=== PATIENT | female | born 1950 | race Caucasian/White ===

== ENCOUNTER 2016-11-28 09:10 | Observation (INO) | payer MEDICARE, BC ==
[~2016-11-28] VITALS: Ht 162.6 cm; Wt 102.1 kg
[~2016-11-28 09:10] MED LIST: AMLODIPINE2.5 MG PO; AMOXICILLIN500 MG PO; ASPIRIN ADULT L81 MG PO; BETHANECHOL50 MG PO; BUSPAR5 MG PO; CIPROFLOXACN500 MG PO; CLONAZEPAM1 MG PO; CYMBALTA60 MG PO; DILANTIN100 MG PO; HYDROCHLOROT25 MG PO; JANUVIA50 MG PO; LIPITOR40 M1 PO; LORCET HD 10-321 TAB PO; LOSARTAN POT50 MG PO; METFORMIN500 MG PO; METOPROLOL SUC100 MG PO; METRONIDAZOL500 MG PO; PROMETHAZINE12.5 MG PO; SPIRIVA HANDIHALER IN
[2016-11-28] MEDS ORDERED: METOPROLOL SUCC50 MG PO (09:28)
[2016-11-28] MEDS ORDERED: MORPHINE SULFAT20 MG PO (09:28)
[2016-11-28] MEDS ORDERED: CLONAZEP ODT1 MG PO (09:29)
[2016-11-28] MEDS ORDERED: LYRICA100 MG PO (09:29)
[2016-11-28] MEDS ORDERED: BUSPAR10 M1 PO (09:30)
[2016-11-28] MEDS ORDERED: AMLODIPINE5 MG PO (09:30)
[2016-11-28] MEDS ORDERED: QUETIAPINE FUM400 MG PO (09:31)
[2016-11-28] MEDS ORDERED: SUPER B COMP PO (09:32)
[2016-11-28 10:13] LABS: ALKALINE PHOSPHATASE 71 u/l (38-126); AMYLASE 56 u/l (30-110); ANION GAP 19 (6-22 (CALC)); BILIRUBIN, TOTAL 0.5 mg/dL (0.0-1.4); BUN 31 mg/dL (8-23); BUN/CREATININE RATIO 17 (12-20 (CALC)); CALCIUM 9.2 mg/dL (8.4-10.2); CARBON DIOXIDE 23 mmol/l (22-30); CHLORIDE 103 mmol/l (95-108); CREATININE 1.8 mg/dL (0.5-1.0); GFR 28 ML/MIN (>=60 (CALC)); GFR FOR AFR.AMER. 34 ML/MIN (>=60 (CALC)); GLUCOSE 300 mg/dL (82-115); LIPASE 84 u/l (23-300); POTASSIUM 4.2 mmol/l (3.5-5.1); SGOT/AST 39 u/l (9-36); SGPT/ALT 72 u/l (11-66); SODIUM 140 mmol/l (137-146); TOTAL PROTEIN 7.3 g/dL (6.3-8.2)
[2016-11-28 10:18] LABS: HEMATOCRIT 40.7 % (37.0-47.0); HEMOGLOBIN 13.2 g/dl (12.0-16.0); IMMATURE GRANULOCYTES 0.4 % (0.0-1.0); MEAN CELL VOLUME 89.8 fL CALC (80.0-100.0); MEAN CORPUSCULAR HGB 29.1 pG CALC (26.0-32.0); MEAN CORPUSCULAR HGB CONC 32.4 g/L CALC (32.0-36.0); NEUT# 8.45 thou/uL (2.00-7.15); RED BLOOD COUNT 4.53 mill/uL (4.20-5.60); RED CELL DISTRI WIDTH 12.6 % (11.5-15.5)
[2016-11-28 10:24] LABS: MYOGLOBIN 123 ng/mL (0 - 62)
[2016-11-28 11:22] LABS: C. DIFFICILE TOXIN A&B NEGATIVE (NEGATIVE)
[2016-11-28 14:37] VITALS: BP 106/58
[2016-11-28 19:09] VITALS: BP 122/67
[2016-11-28 23:28] VITALS: BP 135/67
[2016-11-29 02:55] LABS: URINE BILIRUBIN - DIPSTICK NEGATIVE (NEGATIVE); URINE BLOOD DIPSTICK NEGATIVE (NEGATIVE); URINE CLARITY CLEAR; URINE COLOR YELLOW; URINE GLUCOSE - DIPSTICK NEGATIVE (NEGATIVE); URINE KETONE NEGATIVE (NEGATIVE); URINE LEUK ESTERASE NEGATIVE (NEGATIVE); URINE NITRITE - DIPSTICK NEGATIVE (Negative); URINE PH 5.5 (4.5-8.0); URINE PROTEIN - DIPSTICK NEGATIVE (NEG-TRACE); URINE UROBILINOGEN - DIPSTICK 0.2 E.U./dL (0.2)
[2016-11-29 03:21] VITALS: BP 124/66
[2016-11-29 05:52] LABS: HEMATOCRIT 35.5 % (37.0-47.0); HEMOGLOBIN 11.7 g/dl (12.0-16.0); IMMATURE GRANULOCYTES 0.4 % (0.0-1.0); MEAN CELL VOLUME 88.5 fL CALC (80.0-100.0); MEAN CORPUSCULAR HGB 29.2 pG CALC (26.0-32.0); NEUT# 6.28 thou/uL (2.00-7.15); RED BLOOD COUNT 4.01 mill/uL (4.20-5.60); RED CELL DISTRI WIDTH 12.5 % (11.5-15.5)
[2016-11-29 06:04] LABS: CALCIUM 8.8 mg/dL (8.4-10.2); CREATININE 1.1 mg/dL (0.5-1.0); POTASSIUM 4.4 mmol/l (3.5-5.1)
[2016-11-29 07:49] VITALS: BP 139/66
[2016-11-29 11:45] VITALS: BP 161/70
[2016-11-29 16:10] VITALS: BP 153/71
[2016-11-29 20:43] VITALS: BP 165/68
[2016-11-29 23:39] VITALS: BP 142/84
[2016-11-30 04:05] VITALS: BP 160/65
[2016-11-30 05:56] LABS: HEMOGLOBIN 12.1 g/dl (12.0-16.0); IMMATURE GRANULOCYTES 0.4 % (0.0-1.0); MEAN CORPUSCULAR HGB 29.6 pG CALC (26.0-32.0); MEAN CORPUSCULAR HGB CONC 33.6 g/L CALC (32.0-36.0); NEUT# 2.99 thou/uL (2.00-7.15); RED BLOOD COUNT 4.09 mill/uL (4.20-5.60); RED CELL DISTRI WIDTH 12.4 % (11.5-15.5)
[2016-11-30 05:59] LABS: ANION GAP 13 (6-22 (CALC)); BUN 12 mg/dL (8-23); BUN/CREATININE RATIO 13 (12-20 (CALC)); CALCIUM 9.3 mg/dL (8.4-10.2); CARBON DIOXIDE 27 mmol/l (22-30); CHLORIDE 108 mmol/l (95-108); GFR 55 ML/MIN (>=60 (CALC)); GFR FOR AFR.AMER. > 60 ML/MIN (>=60 (CALC)); GLUCOSE 109 mg/dL (82-115); POTASSIUM 4.4 mmol/l (3.5-5.1); SODIUM 143 mmol/l (137-146)
[2016-11-30 08:30] VITALS: BP 149/91
[2016-11-30 11:11] VITALS: BP 165/55
== END 2016-11-30 13:16 | disposition home or self-care (01) ==
LOC: ENPENDDIS → ED 09:10 → ED-I 12:26 → ED 12:52 → MS2 12:53
PROVIDERS: Emergency Medicine; ADMIT Internal Medicine; ATTEND Internal Medicine
DX: N17.9 Acute kidney failure, unspecified (principal); E86.0 Dehydration; E11.22 Type 2 diabetes mellitus with diabetic chronic kidney disease; I12.9 Hypertensive chronic kidney disease with stage 1 through stage 4 chronic kidney disease, or unspecified chronic kidney disease; N18.9 Chronic kidney disease, unspecified; I95.9 Hypotension, unspecified; F41.9 Anxiety disorder, unspecified; F32.9 Major depressive disorder, single episode, unspecified; J44.9 Chronic obstructive pulmonary disease, unspecified; E78.5 Hyperlipidemia, unspecified; E87.2 Acidosis; K52.9 Noninfective gastroenteritis and colitis, unspecified; E11.69 Type 2 diabetes mellitus with other specified complication; E11.40 Type 2 diabetes mellitus with diabetic neuropathy, unspecified
CPT/HCPCS: J1650

== ENCOUNTER 2016-12-16 09:03 | Inpatient (IN) | payer MEDICARE, BC ==
[~2016-12-16] VITALS: Ht 162.6 cm; Wt 103.0 kg
[2016-12-16] VITALS (11 sets, daily range): BP systolic 75–150; BP diastolic 48–66
[~2016-12-16 09:03] MED LIST changes: +AMLODIPINE5 MG PO; +BUSPAR10 M1 PO; +CLONAZEP ODT1 MG PO; +HYDROCODONE/ACE1 TAB PO; +LYRICA100 MG PO; +LYRICA150 MG PO; +METOPROLOL SUCC50 MG PO; +MORPHINE SULFAT20 MG PO; +MS CONTIN15 M1 PO; +QUETIAPINE FUM400 MG PO; +SUPER B COMP PO
--- NOTE | 2016-12-16 09:05 | NUR ---
PT TO ROOM 12 VIA EMS.
[2016-12-16 09:36] LABS: HEMATOCRIT 35.4 % (37.0-47.0); HEMOGLOBIN 11.5 g/dl (12.0-16.0); IMMATURE GRANULOCYTES 0.2 % (0.0-1.0); MEAN CELL VOLUME 90.3 fL CALC (80.0-100.0); MEAN CORPUSCULAR HGB 29.3 pG CALC (26.0-32.0); MEAN CORPUSCULAR HGB CONC 32.5 g/L CALC (32.0-36.0); NEUT# 3.09 thou/uL (2.00-7.15); RED BLOOD COUNT 3.92 mill/uL (4.20-5.60); RED CELL DISTRI WIDTH 13.1 % (11.5-15.5)
--- NOTE | 2016-12-16 09:39 | NUR ---
PT NOW WITH IV ESTABLISHED, BLOOD DRAWN, IVF STARTED, SEEN BY EDP UPON ARRIVAL. BP 95/53 NOW, LOWER WHEN EMS RESPONDED 80/40. DAUGHTER AT BEDSIDE.
[2016-12-16 09:49] LABS: INTERNATIONAL NORMALIZED RATIO 1.1 RATIO (0.7-1.3); PROTHROMBIN TIME 11.7 SECONDS (9.0-12.5)
[2016-12-16 09:50] LABS: ALBUMIN 3.8 g/dL (3.2-5.0); BILIRUBIN, TOTAL 0.5 mg/dL (0.0-1.4); CALCIUM 9.1 mg/dL (8.4-10.2); CREATININE 2.1 mg/dL (0.5-1.0); POTASSIUM 4.5 mmol/l (3.5-5.1); TOTAL PROTEIN 6.5 g/dL (6.3-8.2)
[2016-12-16 10:56] LABS: URINE BILIRUBIN - DIPSTICK NEGATIVE (NEGATIVE); URINE BLOOD DIPSTICK NEGATIVE (NEGATIVE); URINE CLARITY CLEAR; URINE COLOR YELLOW; URINE GLUCOSE - DIPSTICK NEGATIVE (NEGATIVE); URINE KETONE NEGATIVE (NEGATIVE); URINE LEUK ESTERASE NEGATIVE (NEGATIVE); URINE NITRITE - DIPSTICK NEGATIVE (Negative); URINE PH 5.5 (4.5-8.0); URINE PROTEIN - DIPSTICK NEGATIVE (NEG-TRACE); URINE SPECIFIC GRAVITY >=1.030; URINE UROBILINOGEN - DIPSTICK 0.2 E.U./dL (0.2)
[2016-12-16 10:59] LABS: COCAINE NEGATIVE (NEGATIVE); TETRAHYDROCANNABIONOL NEGATIVE (NEGATIVE)
[2016-12-16 11:00] LABS: BARBITURATES NEGATIVE (NEGATIVE); METHADONE NEGATIVE (NEGATIVE); OXCYCODONE NEGATIVE (NEGATIVE)
[2016-12-16 11:01] LABS: TRICYLIC ANTIDEPRESSANTS POSITIVE (NEGATIVE)
--- NOTE | 2016-12-16 11:47 | NUR ---
PT AND FAMILY AWARE OF PENDING ADMISSION. PT IS ON BiPAP, SEEN MORE RESPONSIVE NOW. TO ICU SOON.
--- NOTE | 2016-12-16 12:11 | NUR ---
REPORT CALLED TO MARIKA ZACARIAS.
--- NOTE | 2016-12-16 12:40 | NUR ---
RECIEVED PT FROM ER VIA STRETCHER. WITH ASSIST OF 4 PT TRANSFERED TO THE BED. PT UNRESPONSIVE, DOES RESPOND TO VERBAL STIMULI FOR A SHORT PERIOD OF TIME. ASSESSMENT COMPLETED. SKIN WARM AND DRY, COLOR PINK. BI-PAP INPLACE. NO RESP. DISTRESS NOTED. LUNGS CLEAR MARILUZ. REGULAR HEART RATE, BOWEL SOUNDS PRESENT. SALINE LOCK IN LEFT ANKLE. RAZO TO BEDSIDE DRAIN, COLOR ALAN. FAMILY AT BEDSIDE. WILL CONTINUE TO MONITOR CONDITION.
--- NOTE | 2016-12-16 13:38 | NUR ---
SPOKE WITH PT DAUGHTER AND SON IN LAW AT LENGTH REGARDING PT CURRENT CONDITION, PLAN OF CARE, ETC. THEY EXPRESS CONCERNS REGARDING NEEDING HELP AT HOME RELATED TO PT BEING WEAK AND REQUIRING ASSISTANCE WITH SHOWER, MOBILITY ETC.. [facility] CONSULTED PER FAMILY REQUEST, DISCUSSED REHAB OPTIONS AND DAUGHTER STATES PT WILL REFUSE ADAMANTLY, PERIOD. WHICH IS WHY THEY REQUESTED TO CASE [facility] TO FIND OUT WHAT IN HOME OPTIONS FOR HELP ARE AVAILABLE.
--- NOTE | 2016-12-16 14:10 | NUR ---
NOTIFIED OF HYPOTENSION, NEW ORDERS REC'D
--- NOTE | 2016-12-16 14:40 | NUR ---
BOLUS STARTED PER ORDERS, IV SITE WITH EXCELLENT ASPIRATE, WILL MONITOR CLOSELY.
--- NOTE | 2016-12-16 16:00 | NUR ---
BOLUS COMPLETED B/P IMPROVING, TOLERATING BI PAP, REMAINS DROWSY AND SLEEPING, MAINTAINING O2 SATS W/O INCIDENT, SEE FLOW SHEET FOR BI PAP DETAILS
--- NOTE | 2016-12-16 17:00 | NUR ---
Pt with eyes opened, asked "where am I and how did I get here?" Answers provided. Pt denies knowing what lead her here. Pt requested something to drink, water was provided, pt drank a 1/2 of glass of ice water. Pt tolerated well. No difficulties. Pt continues to rest quietly in bed. IV fluids infusing without difficulty.
--- NOTE | 2016-12-16 17:54 | NUR ---
Pt continues to rest quietly with eyes closed. Bi-pap continues as per MD order. No resp. distress noted. No change in pt's condition. IV fluids infusing without difficulty. VS 94, 24, 114/69, Sat 99% Will continue to monitor status.
--- NOTE | 2016-12-16 18:10 | NUR ---
PT AWAKE AND ASKING TO HAVE BI PAP REMOVED, TOLERATING NASAL CANNULA WITH SATS MAINTAINED AT 94-98% AT THIS TIME DURING CONVERSATION, PT IS ORIENTED TO PLACE AND DATE TIME, UNSURE OD DETAILS SURROUNDING ADMISSION. BP REMAINS STABLE, URINE OUTPUT ADEQUATE, PROVIDED WITH PUDDING (SUGAR FREE) AND VIMAL CRACKERS TO MONITOR TOLERANCE OF DIET, CALL GUIDRY WITHIN REACH
--- NOTE | 2016-12-16 19:30 | NUR ---
PT. SITTING UP IN BED WITH NO DISTRESS NOTED. PT. IS A/A/O, WITH FORGETFULLNESS. ASSESSMENT COMPLETED. PT. IS FIDGETY. O2 INFUSING PER NC @2LITERS/MIN PER NC; SPO2 98%, B/P 113/52, AND TEMP IS ELEVATED AT 101.2, MEDICATED WITH ORDERED TYLENOL AT THIS TIME, WILL REASSESS.PHARMACY BUYER READING ST 100 AT THIS TIME. PT. IS UPDATED WITH POC, CALL LIGHT, AND ROOM; WILL NEED REINFORCEMENT. RAZO CATHETER PATENT AND DRAINING DARK YELLOW URINE AT GRAVITY LEVEL, EMPTIED 450 ML AT THIS TIME. IV SITE PATENT TO RIGHT FOOT AND ORDERED NS INFUSING @125ML/HR. ENCOURAGED TO CALL FOR ANY NEEDS. WILL CONTINUE TO MONITOR.
--- NOTE | 2016-12-16 21:26 | NUR ---
PT. GIVEN INCENTIVE SPIROMETER TEACHING, PT. PULLING 1500, GOAL SET TO 2000. PT. DID 10 REPS AT THIS TIME. ENCOURAGED TO USE EVERY HOUR WHILE AWAKE 10X'S. WILL REINFORCE. PT. REMAINS ON O2 @2LITERS/MIN PER NC AND SPO2 97%. TAPER AND FLOATER IN PLACE AND READING [address] 104. PT. DENIES NEEDS. WILL CONITNUE TO MONITOR.
--- NOTE | 2016-12-16 23:00 | NUR ---
PT. SITTING UP IN BED, AGGITATED AND BEING RUDE WITH STAFF. PT. REPORTING THAT SHE HAS BEEN SITTING FOR HOURS WAITING ON SOMEONE, REMINDED PT. THAT STAFF HAS BEEN IN HOURLY WITH LAST TIME BEING AT 2200, ALSO RE-EDUCATED ON INSTRUCTION OF CALL LIGHT USE. PT. ALSO REPORTING THAT HAS NOT BEEN IN TO SEE PT. YET. PT. EDUCATED ON POC AND THAT MD WILL BE IN TOMORROW TO SEE PT. PT. STILL UPSET AT THIS RESPONSE. PT. REPORTS THAT SHE IS FEELING NAUSEOUS AND HAS A GREEN, OFFERED PRN MEDICATIONS AND PT. REFUSES SAYING THAT SHE DOES NOT WANT ANYMORE MEDICATIONS. APPLIED COOL PACK TO NECK AND FOREHEAD FOR GREEN, AND KIM NICHO AND CRACKERS GIVEN. PT. THEN WHEN ON TO SAY THAT SHE HADNT EVEN ATE DINNER, OFFERED PT. A LIGHT SNACK SINCE PT. IS C/O NASUEA, PT. DECLINED. ATTEMPTED TO DO ANOTHER NEURO ASSESSMENT ON PT. AT THIS TIME, AND PT. REFUSED AND SAID,'JUST LEAVE ME ALONE, AND JUST LET ME SLEEP." WILL CONTINUE TO MONITOR. PT. AGAIN REINSTRUCTED TO USE CALL LIGHT FOR ANY NEEDS, AND PT. ROLLED HER EYES AT STAFF. CALL LIGHT IS IN REACH.
[2016-12-17] VITALS (20 sets, daily range): BP systolic 138–203; BP diastolic 54–90
--- NOTE | 2016-12-17 00:10 | NUR ---
SPOKE WITH DR. BRIZUELA AND NOTIFIED OF LAST B/P 155/62 AND OF HR SUSTAINING ST 100-105, NEW MEDICATION ORDERS TO BE PLACED BY MD, WILL CARRY OUT.
--- NOTE | 2016-12-17 00:44 | NUR ---
CALLED AND SPOKE WITH FELICIA FROM [facility] IN REGARDS TO TOPROL XL STILL NOT BEING VERIFIED AT THIS TIME. SHE REPORTS SHE WILL RELAY THIS MESSAGE TO PHARMACIST. WILL AWAIT MEDICATION ORDER TO BE VERIFIED FOR ADMINISTRATION.
--- NOTE | 2016-12-17 01:19 | NUR ---
SPOKE WITH SERGIO FROM [place] IN REGARDS TO TOPROL XL STILL NOT BEING VERIFIED. PER SERGIO SHE IS WORKING ON IT NOW AND IT WILL BE VERIFIED SHORTLY. WILL AWAIT.
--- NOTE | 2016-12-17 01:24 | NUR ---
PT. ASLEEP, AWAKENED AT THIS TIME FOR SCHED TOPROL XL, B/P OBTAINED AND IS 143/67 AND HR 102, MEDICATED AT THIS TIME. SPO2 REMAINS AT 98% WITH O2 PER NC. NO RESP DISTRESS NOTED. PT. REMAINS ON SUPPLY CHAIN PROCUREMENT MANAGER. TEMP 98.3, WILL CONTINUE TO MONITOR. PT. IS A/A/O AT THIS TIME, AND NEURO CHECK PERFORMED AT THIS TIME. PT. ABLE TO TELL THIS WAREHOUSE RECORD CLERK MONTH AND YEAR, BUT NOT CORRECT DAY OF THE MONTH. PT. DENIES NEEDS, REPORTS SHE IS GOING TO TRY AND SLEEP. WILL CONTINUE TO MONITOR.
--- NOTE | 2016-12-17 03:28 | NUR ---
B/P 189/75 AND HR 97, MEDICATED WITH ORDERED PRN APRESOLINE, WILL REASSESS. PT. DENIES NEEDS. SPO2 REMAINS AT 98% ON O2NC. WILL CONITNUE TO MONITOR. CALL LIGHT IS IN REACH. WILL CONTINUE TO MONITOR.
[2016-12-17 04:12] LABS: HEMATOCRIT 36.3 % (37.0-47.0); HEMOGLOBIN 11.8 g/dl (12.0-16.0); MEAN CELL VOLUME 89.6 fL CALC (80.0-100.0); MEAN CORPUSCULAR HGB 29.1 pG CALC (26.0-32.0); MEAN CORPUSCULAR HGB CONC 32.5 g/L CALC (32.0-36.0); RED BLOOD COUNT 4.05 mill/uL (4.20-5.60); RED CELL DISTRI WIDTH 12.8 % (11.5-15.5)
[2016-12-17 04:33] LABS: CALCIUM 9.3 mg/dL (8.4-10.2); CREATININE 1.3 mg/dL (0.5-1.0); MAGNESIUM 1.8 mg/dL (1.6-2.3)
--- NOTE | 2016-12-17 05:31 | NUR ---
PT. SITTING UP IN BED WITH NO RESP DISTRESS NOTED. C/O GREEN , MEDICATED WITH ORDERED PRN TYLENOL AND SCHEDULED HEPARIN AT THIS TIME. PT. IS SWEATY, ASKED PT. IF SHE WOULD LIKE TO GET OOB TO WASH UP AND GET LINENS CHANGED, PT. REFUSED AND REPORTED SHE WAS TOO TIRED. COOL WASHCLOTH PROVIDED FOR FACE AND ASSISTED PT. TO WASH UNDERARMS AND UNDERNEATH BREAST FOLDS, PT. REFUSES TO LIFT NECK SO STAFF CAN WASH HAIR AND NECK. GOWN IS CHANGED. TEMP CHECKED AND IS 97.4 AT THIS TIME. PO FLUIDS OFFERED. IVF DECREASED TO 100MLS/HR PER ORDER. PT. REMAINS ST 100 AT THIS TIME PER FOOT WORKER. B/P 175/72, AND SPO2 96% ON NC, WILL CONTINUE TO MONITOR. PT. C/O NAUSEA, WILL MEDICATE WITH ORDERED COMPAZINE SHORTLY.ASSISTED PT. WITH BEING PULLED UP IN BED BY 2 STAFF ASSISTANCE. PT. DENIES FURTHER NEEDS AT THIS TIME. ENCOURAGED TO CALL FOR ANY NEEDS. CALL LIGHT IS IN REACH.
--- NOTE | 2016-12-17 07:19 | NUR ---
PT MORE AWAKEW THIS AM CRYING OUT HELP HELP HELP, WHEN ENTERING THE ROOM ASKING WHAT SHE NEEDS PT STATES WELL I NEED SOME HELP, WHEN ASKED WHY SHE DOESN'T USE CALL GUIDRY STATES "OH OK I FORGOT I'M SUPPOSED TO DO THAT", PT TAKEN OFF BEDPAN, (NO BM) KEITH/RAZO CARE PROVIDED AND REPOSITIONED FRO COMFORT, PT COMPLAINTS OF BEING HOT TEMP (97.6) FAN PROVIDED FOR COMFORT, AM ASSESSMENT COMPLETED, SEE INTERVENTION IVF INFUSING AT PRESCRIBED RATE, SAFETY MEASURE REINFORCED, ENCOURAGED TO CALL FOR ANY NEEDED ASSISTANCE. WILL CONTINUE TO MONITOR
--- NOTE | 2016-12-17 07:40 | NUR ---
SET UP ASSIST PROVIDED FOR AM MEAL, FRESH WATER PROVIDED, PT DENIES ANY COMPLAINTS AT THIS TIME
--- NOTE | 2016-12-17 07:50 | NUR ---
SPOKE WITH DAUGHTER SULLY VIA TELEPHONE, INSTRUCTED TO BRING IN PT'S MEDICATIONS IN BOTTLE TO MEET WITH TO GO OVER PLAN OF CARE.
--- NOTE | 2016-12-17 08:09 | NUR ---
PT OOB WITH SBA TO BEDSIDE COMMODE, STRENGTH/BALANCE MODERATE NO BM, BACK TO BED WITH SAME ASSIST, TOLERATED ACTIVITY WELL, CONTINUES TO TOLERATE NC SATS 94-98% NO SOB OR DISTRESS NOTED, RAZO REMAINS INTACT WITH CELAR YELLOW URINE, CATH STRAP IN PLACE. CALL GUIDRY WITHIN REACH
--- NOTE | 2016-12-17 08:46 | NUR ---
DAUGHTER AND SON IN LAW AT BEDSIDE, PT'S HOME MEDS AT NURSES STATION FOR REVIEW WITH MED REC. TOLERATED AM MEAL WELL, ALSO SPOKE WITH MICHAEL MGMTALFREDA WHO WILL GET IN CONTATCT WITH DAUGHTER (PER HER REQUEST) CALL GUIDRY WITHIN REACH
--- NOTE | 2016-12-17 09:08 | NUR ---
PT TAKES PO MEDICATIONS W/O INCIDENT, DAUGHTER AND SON IN LAW REMAIN AT BEDSIDE, WILL CONTINUE TO MONITOR.
--- NOTE | 2016-12-17 09:23 | NUR ---
WATCH AND BRACELET TAKEN HOME BY FAMILY MEMBERS AT PT REQUEST
--- NOTE | 2016-12-17 10:54 | NUR ---
IVF STOPPED PER ORDER, RAZO CATHETER REMOVED INTACT, PT TOLERATED WELL, AWARE OF PLANNED TRASNFER TO MED SURG UNIT TODAY, FAMILY REMAINS AT BEDSIDE, CALL GUIDRY WITHIN REACH
--- NOTE | 2016-12-17 11:52 | NUR ---
SET UP ASSIST PROVIDED FOR AFTERNOON MEAL, OOB TO BSC, RESTARTED JANUVIA ORDERED
--- NOTE | 2016-12-17 12:15 | NUR ---
PT MAINTAINED SATS 96-99% ON 2L NO DISTRESS NTOED, PT NOT O2 DEPENDENT AT HOME, DECREASED O2 TO 1L VIA NC WILL MONITOR TOLERANCE.
--- NOTE | 2016-12-17 12:56 | NUR ---
REPORT CALLED TO RUMA ZACARIAS ON MED SURG, ROOM 262 ASSIGNED, MED SURG WILL OBTAIN TELE ORDERED.
--- NOTE | 2016-12-17 13:10 | NUR ---
PT TRANSPORTED TO MED SURG VIA WC ON ROOM AIR, UPON ARRIVAL PLACED ON BSC WITH SBA, TOLERATES ACTIVITY WELL, SMALL FIRM BM AND SCANT AMOUNT URINE (<25ML) ASSISTED WITH KEITH CARE AND TRANSFERRED IN TO BED AFTER WEIGHT OBTAINED ON STANDING SCALE (226.5 LBS) REMAINS ON ROOM WIHT WITH SAT 97% LEAVE O2 OFF AT THIS TIME PER VO WEAR AT BEDTIME FOR SLEEP WHILE IN HOSPITAL. NURSE RUMA AWARE OF ARRIVAL AND SNA NOW AT BEDSIDE
--- NOTE | 2016-12-17 13:10 | NUR ---
FROM ICU VIA WHEELCHAIR ACCOMPANIED BY JANA ZACARIAS. ASSISTED TO BED WITH STAND BY ASSIST. #20 TO RIGHT ANKLE PATENT, SITE APPEARS HEALTHY. RESPS EVEN AND UNLABORED ON ROOM AIR, TELE MONITOR APPLIED. DENIES PAIN OR DISCOMFORT. ORIENTED TO ROOM AND CALL SYSTEM. SAFETY PRECAUTIONS REINFORCED. BED IN LOWEST POSITION WITH WHEELS LOCKED. CALL LIGHT WITHIN REACH. ENCOURAGED PT TO CALL FOR ANY NEEDS.
--- NOTE | 2016-12-17 16:46 | NUR ---
ASSISTED TO BEDSIDE COMMODE WITH STAND BY ASSIST. RESPS EVEN AND UNLABORED ON ROOM AIR, TELE MONITOR IN PLACE. DENIES PAIN OR DISCOMFORT. CALL LIGHT WITHIN REACH. ENCOURAGED PT TO CALL FOR ANY NEEDS.
--- NOTE | 2016-12-17 19:45 | NUR ---
PATIENT RESTING IN BED AT THIS TIME-AWAKE ALERT AND VERY ANXIOUS. STATES THAT "SHE JUST DOESN'T FEEL GOOD." PATIENT SKIN IS COOL AND CLAMMY. PATIENT IS VERY VAGUE WITH HER COMPLAINTS, NON-SPECIFIC. VS TAKEN AND RECORDED. AFEBRILE. PATIENT WITH HEP LOCK TO RIGHT ANKLE. SITE APPEARS HEALTHY WITH GOOD BLOOD RETURN. LUNGS ARE CLEAR. ABD SOFT WITH BS+. NO PERIPHERAL EDEMA BUT WITH SWELLING NOTED TO FINGERS AND ARMS.PATIENT MEDICATED WITH KLONOPIN 1MG PO ORDERED. SAFETY PRECAUTIONS REINFORCED. CALL LIGHT IN REACH. WILL CONT TO MONITOR.
--- NOTE | 2016-12-17 23:23 | NUR ---
PATIENT IN REYES AND VERY AGITATED AND STATES "WHERE AM I AT". PATIENT WITH O2 TUBING WRAPPED AROUND HER. PATIENT IS ORIENTED TO PERSON, PLACE AND DATE. STATES THAT SHE CAN'T STAY HERE AND THAT SHE NEEDS TO GO BEFORE SHE GOES CRAZY-PATIENT ASSISTED BACK TO BED AND MOVED PATIENT VIA HER BED TO ROOM 260 FOR PATIENT SAFETY REASONS. ORIENTED PATIENT TO ROOM AND SURROUNDINGS. ATTEMPTED TO REASSURE PATIENT THAT SHE IS IN THE HOSPITAL FOR TREATMENT AND THAT SHE IS SAFE. CONT TO INSIST THAT SHE HAS TO GO. CALL TO DR. BRIZUELA AND ORDERS RECIEVED. WILL ADMINISTER SOON ON EMAR. PATIENT REASSURED OF THE SITUATION. BED ALARM IN PLACE FOR PATIENT SAFETY. O2 VIA NASAL CANNULA IN PLACE. CALL LIGHT IN REACH. WILL CONT TO MONITOR.
--- NOTE | 2016-12-18 | NUR ---
PATIENT CONT TO BE AGITATED AND UNCOOPERATIVE. REFUSING MEDS, REFUSING TELE MONITORING, REFUSING O2. PATIENT WAS EXTREMELY RUDE TO DAUGHTER WHEN SPEAKING TO HER ON THE PHONE. I SPOKE WITH DAUGHTER SULLY AND SHE STATES THAT SHE WILL COME IN TO TRY TO SPEAK TO HER MOM AND TALK HER INTO TAKING PERSCRIBED MEDS. PATIENT IS RESTING IN BED AT THIS TIME. BED ALARM IN PLACE FOR PATIENT SAFETY. CALL LIGHT IN REACH. WILL CONT TO MONITOR.
--- NOTE | 2016-12-18 00:38 | NUR ---
DAUGHTER AND SON-IN-LAW CAME IN TO SEE PATIENT AND PATIENT WAS RUDE AND CONT TO REFUSE TO TAKE PO MEDS THAT ARE ORDERED. WANTS TO GO HOME. DAUGHTER AT BEDSIDE AND TRYING TO TALK TO HER MOM WITH NO SUCCESS. PATIENT IS VERBALLY ABUSIVE TO HER DAUGHTER. DAUGHTER IS TEARFUL. PATIENT RESTING IN BED. PATIENT MEDICATED WITH ZYPREXA 10MG IM TO LEFT UPPER OUTER QUAD AND IMMEDIATELY AFTER INJECTION GIVEN BECOMING QUIET AND RESTING ON HER SIDE. DAUGHTER AND SON-IN-LAW WENT HOME. BED ALARM IN PLACE FOR PATIENT SAFETY. WILL CONT TO MONITOR.
--- NOTE | 2016-12-18 01:26 | NUR ---
PATIENT REMAINS QUIET AND APPEARS SLEEPING AT THIS TIME. CONT TO ALLOW STAFF TO PLACE TELE BACK ON OR TO ALLOW STAFF TO PUT O2 BACK ON. BED ALARM IN PLACE FOR PATIENT SAFETY. CALL LIGHT IN REACH. WILL CONT TO MONITOR.
--- NOTE | 2016-12-18 03:15 | NUR ---
PATIENT RESTING IN BED WITH EYES OPEN ON ROUNDS-PATIENT ASKED IF SHE COULD HAVE SOMETHING FOR SLEEP. PATIENT MEDICATED WITH SEROQUEL 100MG, [id number] AND [id number]/325MG PO WAS ORDERED EARLIER AND PATIENT REFUSED. PATIENT IS CALM AT THIS TIME AND ORIENTEDX3. PATIENT IS CURRENTLY APPROPRIATE AND ASKED FOR ASSIST TO THE BR-ASSISTED TO THE BR TO VOID AND THEN BACK TO BED. BED ALARMS IN PLACE FOR PATIENT SAFETY. CALL LIGHT IN REACH. WILL CONT TO MONITOR.
--- NOTE | 2016-12-18 05:25 | NUR ---
PATIENT APPEARS SLEEPING AT THIS TIME POSITIONED ON HER SIDE. CALL LIGHT IN REACH. BED ALARM IN PLACE FOR PATIENT SAFETY. WILL CONT TO MONITOR.
[2016-12-18 06:06] LABS: ALBUMIN 3.6 g/dL (3.2-5.0); BUN 14 mg/dL (8-23); CALCIUM 9.5 mg/dL (8.4-10.2); CARBON DIOXIDE 30 mmol/l (22-30); CHLORIDE 106 mmol/l (95-108); CREATININE 0.9 mg/dL (0.5-1.0); GFR > 60 ML/MIN (>=60 (CALC)); GFR FOR AFR.AMER. > 60 ML/MIN (>=60 (CALC)); GLUCOSE 139 mg/dL (82-115); POTASSIUM 3.7 mmol/l (3.5-5.1); SODIUM 144 mmol/l (137-146)
--- NOTE | 2016-12-18 07:00 | NUR ---
RECEIVED BEDSIDE REPORT FROM HIRAM ZACARIAS. RESTING ON RIGHT SIDE WITH EYES CLOSED, AWAKENS EASILY. RESPS EVEN AND UNLABORED ON ROOM AIR, TELE MONITOR IN PLACE. VOICES NO NEEDS AT THIS TIME. PLAN OF CARE DISCUSSED. SAFETY PRECAUTIONS REINFORCED. BED IN LOWEST POSITION WITH WHEELS LOCKED. CALL LIGHT WITHIN REACH. ENCOURAGED PT TO CALL FOR ANY NEEDS.
[2016-12-18 08:17] VITALS: BP 195/95
--- NOTE | 2016-12-18 08:30 | NUR ---
PHYSICAL THERAPY AMBULATING IN HALLWAY WITH PT.
--- NOTE | 2016-12-18 10:25 | NUR ---
DR FLOOD IN WITH PT, NEW ORDERS RECEIVED.
[2016-12-18 11:00] VITALS: BP 172/85
--- NOTE | 2016-12-18 12:29 | NUR ---
PT RESTING IN BED ON RIGHT SIDE. RESPS EVEN AND UNLABORED ON ROOM AIR, TELE MONITOR IN PLACE. BED ALARM ON FOR SAFETY. VOICES NO NEEDS AT THIS TIME. PO FLUIDS OFFERED. CALL LIGHT WITHIN REACH. ENCOURAGED PT TO CALL FOR ANY NEEDS.
[2016-12-18 15:23] VITALS: BP 153/83
--- NOTE | 2016-12-18 16:00 | NUR ---
ASSISTED TO BATHROOM WITH STEADY GAIT. RESPS EVEN AND UNLABORED ON ROOM AIR, TELE MONITOR IN PLACE. VOICES NO NEEDS. CALL LIGHT WITHIN REACH.
[2016-12-18 18:40] VITALS: BP 145/78
--- NOTE | 2016-12-18 19:23 | NUR ---
PATIENT RESTING IN BED AT THIS TIME-AWAKE ALERT AND ORIENTEDX3. PATIENT WITH NO COMPLAINTS AT THIS TIME. PATIENT IS CALM AND PLEASENT AT THIS TIME. HEP LOCK TO RIGHT ANKLE INTACT AND APPEARS HEALTHY AT THIS TIME. SAFETY PRECAUTIONS REINFORCED WITH PATIENT. CALL LIGHT IN REACH. WILL CONT TO MONITOR.
[2016-12-19] VITALS: BP 165/92
--- NOTE | 2016-12-19 00:39 | NUR ---
PATIENT APPEARS SLEEPING AT THIS TIME POSITIONED ON HER SIDE IN BED.BED ALARM IN PLACE FOR PATIENT SAFETY. CALL LIGHT IN REACH. WILL CONT TO MONITOR.
--- NOTE | 2016-12-19 03:59 | NUR ---
PATIENT APPEARS SLEEPING AT THIS TIME. CALL LIGHT IN REACH. WILL CONT TO MONITOR
[2016-12-19 04:00] VITALS: BP 152/90
[2016-12-19 05:42] LABS: HEMATOCRIT 38.6 % (37.0-47.0); HEMOGLOBIN 12.9 g/dl (12.0-16.0); MEAN CELL VOLUME 86.7 fL CALC (80.0-100.0); MEAN CORPUSCULAR HGB CONC 33.4 g/L CALC (32.0-36.0); RED BLOOD COUNT 4.45 mill/uL (4.20-5.60); RED CELL DISTRI WIDTH 13.1 % (11.5-15.5)
[2016-12-19 06:09] LABS: ANION GAP 14 (6-22 (CALC)); BUN 14 mg/dL (8-23); BUN/CREATININE RATIO 13 (12-20 (CALC)); CALCIUM 9.5 mg/dL (8.4-10.2); CARBON DIOXIDE 28 mmol/l (22-30); CHLORIDE 107 mmol/l (95-108); GFR 55 ML/MIN (>=60 (CALC)); GFR FOR AFR.AMER. > 60 ML/MIN (>=60 (CALC)); GLUCOSE 136 mg/dL (82-115); SODIUM 145 mmol/l (137-146)
--- NOTE | 2016-12-19 06:29 | NUR ---
QUIET NIGHT-SLEPT WELL. NO COMPLAINTS. CALL LIGHT IN REACH. WILL CONT TO MONITOR.
[2016-12-19 08:04] VITALS: BP 207/120
--- NOTE | 2016-12-19 08:09 | NUR ---
PT.HR113,B/P 207/120; PT.IMMEDIATELY MEDICATED W/HYDROLOZINE ORDERED PRN AND ADMINISTERED SCHEDULED MORNING MEDICATIONS; WILL F/UP W/BP AND HR MONITORING
--- NOTE | 2016-12-19 08:18 | NUR ---
F/UP TO B/P 197/110, HR STILL ELEVATED AT 111; PT.ASYMPTOMATIC RELAXING IN BED; HAD JUST FINISHED UP GETTING SHOWER AT EARLIER CHECK
[2016-12-19 08:20] VITALS: BP 197/110
--- NOTE | 2016-12-19 08:55 | NUR ---
DEFERRED TX AT THIS TIME DUE TO HIGH BP 193/98.
[2016-12-19] MEDS ORDERED: QUETIAPINE FUM100 MG PO (10:24)
[2016-12-19] MEDS ORDERED: LYRICA75 MG PO (10:24)
[2016-12-19] MEDS ORDERED: MORPHINE SULFAT20 MG PO (10:24)
[2016-12-19] MEDS ORDERED: LORCET HD 10-321 TAB PO (10:24)
[2016-12-19] MEDS ORDERED: CLONAZEP ODT1 MG PO (10:24)
[2016-12-19 11:05] VITALS: BP 175/81
--- NOTE | 2016-12-19 14:15 | NUR ---
PT.MEDICATED, DENIES ANY OTHER NEEDS, STATED HER DAUGHTER LEFT TO GET HER CLOTHES; CALL LIGHT IS W/IN REACH AND PT.IS INSTRUCTED TO CALL IF ANY NEEDS ARISE
== END 2016-12-19 15:10 | DRG 917 ==
LOC: ED 09:03 → ED-I 11:21 → ED 11:33 → ICU 11:34 → MS2 11:34
PROVIDERS: Emergency Medicine; Internal Medicine; ADMIT Internal Medicine; ATTEND Internal Medicine
PROC: 5A09357 Assistance with Respiratory Ventilation, Less than 24 Consecutive Hours, Continuous Positive Airway Pressure (ICD-10-PCS; principal; 2016-12-16)
DX: T43.591A Poisoning by other antipsychotics and neuroleptics, accidental (unintentional), initial encounter (principal); G92 Toxic encephalopathy; N17.9 Acute kidney failure, unspecified; J96.02 Acute respiratory failure with hypercapnia; J96.01 Acute respiratory failure with hypoxia; J44.1 Chronic obstructive pulmonary disease with (acute) exacerbation; F33.9 Major depressive disorder, recurrent, unspecified; E66.2 Morbid (severe) obesity with alveolar hypoventilation; T42.6X1A Poisoning by other antiepileptic and sedative-hypnotic drugs, accidental (unintentional), initial encounter; E86.0 Dehydration; I10 Essential (primary) hypertension; E78.5 Hyperlipidemia, unspecified; F41.1 Generalized anxiety disorder; M19.90 Unspecified osteoarthritis, unspecified site; G89.4 Chronic pain syndrome; E11.42 Type 2 diabetes mellitus with diabetic polyneuropathy; Z68.39 Body mass index [BMI] 39.0-39.9, adult; Y92.009 Unspecified place in unspecified non-institutional (private) residence as the place of occurrence of the external cause; Z87.891 Personal history of nicotine dependence
CPT/HCPCS: S0166

== ENCOUNTER 2017-02-20 09:57 | Emergency (ER) | payer MEDICARE, BC ==
[~2017-02-20] VITALS: Ht 162.6 cm; Wt 95.0 kg
[~2017-02-20 09:57] MED LIST changes: +DICLOFENAC SODIUM1 % TOP; +LYRICA75 MG PO; +QUETIAPINE FUM100 MG PO
[2017-02-20] MEDS ORDERED: SEROQUEL100 MG PO (10:49)
[2017-02-20] MEDS ORDERED: ONE DAILY FOR WOME1 PO (10:53)
[2017-02-20] MEDS ORDERED: TRULICITY0.75 MG/0. SC (10:58)
[2017-02-20 11:04] LABS: HEMATOCRIT 47.3 % (37.0-47.0); HEMOGLOBIN 16.1 g/dl (12.0-16.0); IMMATURE GRANULOCYTES 0.4 % (0.0-1.0); MEAN CELL VOLUME 85.5 fL CALC (80.0-100.0); MEAN CORPUSCULAR HGB 29.1 pG CALC (26.0-32.0); NEUT# 7.94 thou/uL (2.00-7.15); RED BLOOD COUNT 5.53 mill/uL (4.20-5.60); RED CELL DISTRI WIDTH 12.7 % (11.5-15.5)
[2017-02-20 11:31] LABS: ALBUMIN 4.9 g/dL (3.2-5.0); ALKALINE PHOSPHATASE 100 u/l (38-126); AMYLASE 40 u/l (30-110); ANION GAP 20 (6-22 (CALC)); BILIRUBIN, TOTAL 0.8 mg/dL (0.0-1.4); BUN 26 mg/dL (8-23); BUN/CREATININE RATIO 26 (12-20 (CALC)); CALCIUM 10.7 mg/dL (8.4-10.2); CARBON DIOXIDE 25 mmol/l (22-30); CHLORIDE 103 mmol/l (95-108); GFR 55 ML/MIN (>=60 (CALC)); GFR FOR AFR.AMER. > 60 ML/MIN (>=60 (CALC)); GLUCOSE 193 mg/dL (82-115); LIPASE 38 u/l (23-300); POTASSIUM 4.3 mmol/l (3.5-5.1); SGOT/AST 35 u/l (9-36); SGPT/ALT 54 u/l (11-66); SODIUM 144 mmol/l (137-146); TOTAL PROTEIN 8.4 g/dL (6.3-8.2)
[2017-02-20] MEDS ORDERED: ZOFRAN ODT4 MG PO (13:24)
[2017-02-20] MEDS ORDERED: CIPROFLOXACN500 MG PO (13:24)
[2017-02-20 13:31] VITALS: BP 225/99
== END 2017-02-20 13:49 | disposition home or self-care (01) ==
LOC: ED 09:57
PROVIDERS: Emergency Medicine
DX: K52.9 Noninfective gastroenteritis and colitis, unspecified (principal); R10.84 Generalized abdominal pain; R11.2 Nausea with vomiting, unspecified; E11.9 Type 2 diabetes mellitus without complications; I10 Essential (primary) hypertension; E78.00 Pure hypercholesterolemia, unspecified
CPT/HCPCS: Q9967

== ENCOUNTER 2017-08-04 01:23 | Emergency (ER) | payer MEDICARE, BC ==
[~2017-08-04] VITALS: Ht 162.6 cm; Wt 96.3 kg
[~2017-08-04 01:23] MED LIST changes: +ONE DAILY FOR WOME1 PO; +RESTORIL15 MG PO; +SEROQUEL100 MG PO; +TRAZODONE100 MG PO; +TRULICITY0.75 MG/0. SC; +ZOFRAN ODT4 MG PO
[2017-08-04 02:56] LABS: HEMATOCRIT 49.8 % (37.0-47.0); IMMATURE GRANULOCYTES 0.3 % (0.0-1.0); MEAN CELL VOLUME 87.1 fL CALC (80.0-100.0); MEAN CORPUSCULAR HGB 30.1 pG CALC (26.0-32.0); MEAN CORPUSCULAR HGB CONC 34.5 g/L CALC (32.0-36.0); NEUT# 11.71 thou/uL (2.00-7.15); RED BLOOD COUNT 5.72 mill/uL (4.20-5.60); RED CELL DISTRI WIDTH 12.2 % (11.5-15.5)
[2017-08-04 03:10] LABS: ALBUMIN 4.4 g/dL (3.2-5.0); BILIRUBIN, TOTAL 0.8 mg/dL (0.0-1.4); CREATININE 1.2 mg/dL (0.5-1.0); POTASSIUM 4.8 mmol/l (3.5-5.1); TOTAL PROTEIN 7.8 g/dL (6.3-8.2)
[2017-08-04 03:26] LABS: HEMOGLOBIN 17.2 g/dl (12.0-16.0)
[2017-08-04] MEDS ORDERED: COLACE100 MG PO (06:03)
[2017-08-04] MEDS ORDERED: CIPROFLOXACN500 MG PO (06:03)
[2017-08-04 06:24] VITALS: BP 168/89
[2017-08-07] MEDS ORDERED: AMLODIPINE10 MG PO (13:13)
[2017-08-07] MEDS ORDERED: TEMAZEPAM15 MG PO (13:13)
[2017-08-07] MEDS ORDERED: PROMETHAZINE12.5 MG PO (13:13)
[2017-08-07] MEDS ORDERED: CLONAZEPAM1 MG PO (13:13)
[2017-08-07] MEDS ORDERED: LORCET HD 10-321 TAB PO (13:24)
== END 2017-08-04 06:16 | disposition home or self-care (01) ==
LOC: ED 01:23
PROVIDERS: Emergency Medicine
DX: K59.00 Constipation, unspecified (principal); I10 Essential (primary) hypertension; E11.9 Type 2 diabetes mellitus without complications; F41.9 Anxiety disorder, unspecified; F32.9 Major depressive disorder, single episode, unspecified; M16.0 Bilateral primary osteoarthritis of hip; R91.8 Other nonspecific abnormal finding of lung field; R93.5 Abnormal findings on diagnostic imaging of other abdominal regions, including retroperitoneum

== ENCOUNTER 2017-08-21 17:39 | Emergency (ER) | payer MEDICARE, BC ==
[~2017-08-21] VITALS: Ht 162.6 cm; Wt 97.0 kg
[~2017-08-21 17:39] MED LIST changes: +AMLODIPINE10 MG PO; +COLACE100 MG PO; +TEMAZEPAM15 MG PO
[2017-08-21 18:19] LABS: HEMOGLOBIN 15.7 g/dl (12.0-16.0); IMMATURE GRANULOCYTES 0.3 % (0.0-1.0); MEAN CELL VOLUME 87.8 fL CALC (80.0-100.0); MEAN CORPUSCULAR HGB CONC 34.1 g/L CALC (32.0-36.0); NEUT# 3.35 thou/uL (2.00-7.15); RED BLOOD COUNT 5.24 mill/uL (4.20-5.60)
[2017-08-21] MEDS ORDERED: TRAZODONE50 MG PO (18:22)
[2017-08-21] MEDS ORDERED: SPIRIVA HANDIH18 MCG IN (18:26)
[2017-08-21 18:45] LABS: ALBUMIN 4.4 g/dL (3.2-5.0); ALKALINE PHOSPHATASE 90 u/l (38-126); AMYLASE 55 u/l (30-110); ANION GAP 19 (6-22 (CALC)); BILIRUBIN, TOTAL 0.9 mg/dL (0.0-1.4); BUN 22 mg/dL (8-23); BUN/CREATININE RATIO 18 (12-20 (CALC)); CARBON DIOXIDE 28 mmol/l (22-30); CHLORIDE 100 mmol/l (95-108); CREATININE 1.2 mg/dL (0.5-1.0); GFR 45 ML/MIN (>=60 (CALC)); GFR FOR AFR.AMER. 54 ML/MIN (>=60 (CALC)); LIPASE 57 u/l (23-300); SGOT/AST 42 u/l (9-36); SGPT/ALT 50 u/l (11-66); SODIUM 142 mmol/l (137-146); TOTAL PROTEIN 8.7 g/dL (6.3-8.2)
[2017-08-21 18:57] LABS: MYOGLOBIN 48 ng/mL (0 - 62)
[2017-08-21 19:51] LABS: URINE BILIRUBIN - DIPSTICK NEGATIVE (NEGATIVE); URINE BLOOD DIPSTICK NEGATIVE (NEGATIVE); URINE COLOR YELLOW; URINE GLUCOSE - DIPSTICK NEGATIVE (NEGATIVE); URINE KETONE NEGATIVE (NEGATIVE); URINE LEUK ESTERASE NEGATIVE (NEGATIVE); URINE NITRITE - DIPSTICK NEGATIVE (Negative); URINE PROTEIN - DIPSTICK NEGATIVE (NEG-TRACE); URINE SPECIFIC GRAVITY 1.015; URINE UROBILINOGEN - DIPSTICK 0.2 E.U./dL (0.2)
[2017-08-21 19:52] LABS: URINE CLARITY CLEAR
[2017-08-21 20:28] VITALS: BP 127/61
== END 2017-08-21 20:28 | disposition home or self-care (01) ==
LOC: ED 17:39
PROVIDERS: Emergency Medicine
DX: R10.30 Lower abdominal pain, unspecified (principal); R11.0 Nausea; I10 Essential (primary) hypertension; E11.9 Type 2 diabetes mellitus without complications

== ENCOUNTER 2017-11-25 09:20 | Emergency (ER) | payer MEDICARE, BC ==
[~2017-11-25 09:20] MED LIST changes: +MIRTAZAPINE ODT15 MG; +SPIRIVA HANDIH18 MCG IN; +TRAZODONE50 MG PO; +ZITHROMAX500 MG PO
[2017-11-25 10:45] VITALS: BP 112/61
[2017-11-25] MEDS ORDERED: NOVOLIN N100 UNIT/1 SC (10:48)
[2017-11-25] MEDS ORDERED: MIRTAZAPINE15 MG PO (10:50)
[2017-11-25] MEDS ORDERED: OXCARBAZEPINE300 MG PO (10:51)
[2017-11-25] MEDS ORDERED: LORATADINE10 M4 PO (10:52)
== END 2017-11-25 10:45 | disposition home or self-care (01) ==
LOC: ED 09:20
DX: E11.65 Type 2 diabetes mellitus with hyperglycemia (principal); I10 Essential (primary) hypertension; F41.9 Anxiety disorder, unspecified; F32.9 Major depressive disorder, single episode, unspecified; Z79.4 Long term (current) use of insulin

== ENCOUNTER 2018-01-31 13:42 | Inpatient (IN) | payer MEDICARE, BC ==
[~2018-01-31] VITALS: Ht 162.6 cm; Wt 91.2 kg
[~2018-01-31 13:42] MED LIST changes: +LASIX20 MG PO; +LORATADINE10 M4 PO; +MIRTAZAPINE15 MG PO; +MONTELUKAST SOD10 MG PO; +NOVOLIN N100 UNIT/1 SC; +OXCARBAZEPINE300 MG PO; +TRAMADOL HCL50 MG PO; +VITAMIN D PO; +VITAMIN D50000 UNIT
[2018-02-04] VITALS (8 sets, daily range): BP systolic 95–126; BP diastolic 30–72
[2018-02-04 11:06] LABS: HEMATOCRIT 36.2 % (37.0-47.0); HEMOGLOBIN 12.2 g/dl (12.0-16.0)
--- NOTE | 2018-02-04 11:36 | NUR ---
PT ARRIVED TO FLOOR VIA BED ACCOMPANIED BY AWARD CLERK. PT DENIES PAIN AT THIS TIME. R HIP DRSG, KAYY & TD, CDI. FALL PRECAUTIONS REINFORCED. REPORTING OF QUESTIONS AND CONCERNS ENCOURAGED. CALL LIGHT REVIEWED AND IN REACH. SCD APPLIED TO LEFT LEG. PT ATTEMPTING CLEAR LIQUIDS AT THIS TIME. #20 LW FREE OF REDNESS/SWELLING, INFUSING LR @ 100 ML/HR. WILL CONTINUE TO MONITOR.
--- NOTE | 2018-02-04 13:21 | NUR ---
KERI PT AT BEDSIDE FOR IN BED THERAPY.
--- NOTE | 2018-02-04 14:00 | NUR ---
PM: PATIENT SEEN FOR PHYSICAL THERAPY EVAL. EXERCISES WERE INITIATED AND INSTRUCTION IN TOTAL HIP ARTHROPLASTY PRECAUTIONS WERE INSTRUCTED. THEY WILL NEED TO BE REVIEWED. PATIENT HAS 3 STEPS INTO HOME WITH RAILING. IF SHE OPTS TO GO HOME INSTEAD OF REHAB, SHE WELL REQUIRE A BSC OR RAISED TOILET SEAT, AND A POCKET ASSEMBLER FOR HOME USE.
--- NOTE | 2018-02-04 15:14 | NUR ---
PT SLEEPING AT THIS TIME. CALL LIGHT WITHIN REACH. NO SIGNS OF DISTRESS.
--- NOTE | 2018-02-04 17:30 | NUR ---
PT SITTING UPRIGHT IN BED. DENIES PAIN. NO NAUSEA. TOLERATING LIQUIDS WELL. INSTRUCTED ON IS USE. 2000 ML INCENTIVE VOLUME ACHIEVED, GOAL OF 2500 ML SET. PT STATES UNDERSTANDING.
--- NOTE | 2018-02-04 18:35 | NUR ---
PT COUHGING. SCREAMING "I CANT BREATHE." MULTIPLE STAFF TO ROOM. PT ASSISTED TO SITTING POSITION BY STAFF. O2 @ 2L VIA NC APPLIED. PT GIVEN SIPS OF H2O, THEN WARM COFFEE. COUGHING STOPPED. EMOTIONAL SUPPORT PROVIDED R/T PT'S FEAR.
--- NOTE | 2018-02-04 20:00 | NUR ---
PATIENT RESTING IN BED AT THIS TIME AWAKE ALERT AND ORIENTEDX3. PATIENT IS C/O RIGHT HIP PAIN-MINIMAL RELIEF FROM EARLIER PAIN MEDS. MEDICATED WITH DILAUDID 1MG IVP ORDERED FOR PAIN. IV SITE TO LEFT WRIST INTACT AND HEALTHY AT THIS TIME. IVF PATENT AND INFUSING AT 100CC/HR. DRESSING TO RIGHT HIP CLEAN DRY AND INTACT. ICE PACK TO RIGHT HIP. SCD'S IN PLAE. O2 VIA NASAL CANNULA IN PLACE. SAFETY PRECAUTIONS REINFORCED. CALL LIGHT IN REACH. WILL CONT TO TO MONITOR.
--- NOTE | 2018-02-04 21:30 | NUR ---
PATIENT RESTING IN [id number]-COVERED WITH 2UNITS OF NOVALOG PER SLIDING SCALE COVERAGE SCALE. IV SITE TO LEFT WRIST REDRESSED AND J-LOOP APPLIED. SITE REMAINS HEALTHY WITH GOOD BLOOD RETURN. O2 VIA NASAL CANNULA IN PLACE. DRESSING TO RIGHT HIP CLEAN DRY AND INTACT. ICE PACK APPLIED. SAFEY PRECAUTIONS REINFORCED.CALL LIGHT IN REACH. WILL CONT TO MONITOR.
--- NOTE | 2018-02-04 23:24 | NUR ---
PATIENT RESTING IN BED-MEDICATED FOR SLEEP WITH RESTORIL 15MG PO AND PERCOCET 10/325MG TABS 2. SAFETY PRECAUTIONS REINFORCED. CALL LIGHT IN REACH. WILL CONT TO MONITOR.
[2018-02-05] VITALS (7 sets, daily range): BP systolic 97–130; BP diastolic 55–74
--- NOTE | 2018-02-05 04:00 | NUR ---
PATIENT RESTING IN BED WITH ABD PILLOW IN PLACE. C/O NAUSEA. MEDICATED WITH ZOFRAN 4MG IVP. ABD IS DISTENDED AND INCONT OF SMALL AMT OF URINE. BLADDER SCAN DONE FOR >999CC. ATTEMPTED TO PLACE #16 [place] RAZO WITHOUT SUCESS. ANTONETTE FELIPE RN PLACED #16 [place] RAZO CATH WITHOUT ANY DIFFICULTY-DRAINED 1000CC OF YELLOW URINE AND WAS [id number] AND THEN OPEN TO CONT DRAINING YELLOW URINE. DRESSING TO RIGHT HIP CDI. O2 VIA NASAL CANNULA IN PLACE. SALINE LOCK TO LEFT WRIST INTACT AND APPEARS HEALTHY AT THIS TIME. SAFETY PRECAUTIONS REINFORCED. CALL LIGHT IN REACH. WILL CONT TO MONITOR.
--- NOTE | 2018-02-05 04:40 | NUR ---
PATIENT CONT TO C/O NAUSEA. OFFERED ICE CHIPS AND/OR GINGERALE. PATIENT TAKING A FEW ICE CHIPS. ABD IS LARGE WITH ACTIVE BS. DENIES ANY PAIN AT THIS TIME. CALL LIGHT IN REACH. WILL CONT TO MONITOR.
[2018-02-05 05:12] LABS: IMMATURE GRANULOCYTES 0.4 % (0.0-5.0); MEAN CORPUSCULAR HGB 30.1 pG CALC (26.0-32.0); MEAN CORPUSCULAR HGB CONC 33.8 g/L CALC (32.0-36.0); RED BLOOD COUNT 3.36 mill/uL (4.20-5.60); RED CELL DISTRI WIDTH 12.8 % (11.5-15.5)
[2018-02-05 05:13] LABS: HEMATOCRIT 29.9 % (37.0-47.0); HEMOGLOBIN 10.1 g/dl (12.0-16.0)
[2018-02-05 05:26] LABS: ALKALINE PHOSPHATASE 81 u/l (38-126); ANION GAP 14 (6-22 (CALC)); BILIRUBIN, TOTAL 0.5 mg/dL (0.0-1.4); BUN 13 mg/dL (8-23); BUN/CREATININE RATIO 13 (12-20 (CALC)); CARBON DIOXIDE 25 mmol/l (22-30); CHLORIDE 103 mmol/l (95-108); GFR 55 ML/MIN (>=60 (CALC)); GFR FOR AFR.AMER. > 60 ML/MIN (>=60 (CALC)); POTASSIUM 3.9 mmol/l (3.5-5.1); SGOT/AST 34 u/l (9-36); SGPT/ALT 32 u/l (11-66); SODIUM 138 mmol/l (137-146)
[2018-02-05 05:27] LABS: MAGNESIUM 1.3 mg/dL (1.6-2.3); TOTAL PROTEIN 5.5 g/dL (6.3-8.2)
--- NOTE | 2018-02-05 07:06 | NUR ---
REPORT RECEIVED FROM RELL GANDHI. PT LAYING IN BED WATCHING TV; RESP EVEN AND UNLABORED; NO DISTRESS NOTED.
--- NOTE | 2018-02-05 08:00 | NUR ---
Assessment completed; pt a/o X4; no complain of nausea; pain 3/10; lungs are clear, no coughing noted; abdomen soft and distended, active bowel sounds; radial & pedal pulses strong; skin warm/dry; abd pillow in place; dressing to right hip cdi; 02 2L nasal cannula; klein patent draining clear, yellow urine, 125cc emptied, leg strap intact; scd to l leg; iv saline locked to l wrist, site appears healthy; morning meds administered; safey precaution enforced; pt educated to eat slowly; pt voiced no concerns; call light in reach will continue to monitor.
--- NOTE | 2018-02-05 09:33 | NUR ---
PT VOICED CONCERNS OF BOWELS, LAST BM 2 DAYS AGO, WARM PRUINE JUICE GIVEN. WILL CONTINUE TO MONITOR.
--- NOTE | 2018-02-05 10:15 | NUR ---
Pt ambulated with a walker in her room with CIERRA Burch, tolerated well with minimal asst and direction. Pt sitting up in the recliner with legs elevated & abd pillow between legs; [address] @ 2L; Pain 5/10 in R hip but refused pain meds; Pt encourage to do ankle pumps, deep breathe, use IS. No distress noted, call light in reach; will continue to monitor.
--- NOTE | 2018-02-05 11:55 | NUR ---
AM: PATIENT SEEN FOR GAIT AND EX. REVIEWED HIP PRECAUTIONS WITH HER. TRANSFER TRAINING DONE TO AND FROM SIT AND SIT TO AND FROM STAND. MOD ASSIST ONE REQUIRED. GAIT TRAINING DONE WITH A ROLLING WALKER. PATIENT ENCOURAGED TO BEAR SOME WGT ON THE RIGHT LE, BUT IS TRYING TO BEAR MINIMAL WGT. ENDURANCE WAS 6 STEPS LIMITED BY PAIN AND C/O OF MILD DIZZINESS. THE DIZZINESS DECREASED AFTER SHE SAT DOWN AND PRACTICED DEEP BREATHING. ISOMETRIC AND GENTLE AA EX DONE IN [place]. PATIENT LEFT COMFORTABLE IN THE BED WITH THE TRAY TABLE AND CALL LIGHT NEXT TO HER.
--- NOTE | 2018-02-05 11:58 | NUR ---
PT sitting up in recliner eating lunch and talking on phone; pt reminded to eat slowly to avoid choking; pain 6/10 but refused pain meds; no s/s of distress noted. call light in reach, will continue to monitor.
--- NOTE | 2018-02-05 12:31 | NUR ---
Dr Alcala to see pt and discus plan of care.
--- NOTE | 2018-02-05 12:45 | NUR ---
pt complained left sitting in the chair and no one came to help her; wished she never had surgery, stated everyone told her it will be easy, but its not. Reminded her it's only post op day 1; will continue to monitor. call light in reach.
--- NOTE | 2018-02-05 12:50 | NUR ---
Pt rate pain /10; administed dilaudid by RELL Mitchell; pt very anxious after being put back to bed; Dr Joseph ordered ekg and xray.
--- NOTE | 2018-02-05 13:45 | NUR ---
administered 1 percocet for pain 11/20.
--- NOTE | 2018-02-05 13:59 | NUR ---
pt off floor for CTA on stretcher, 02 2L, accompanied by two staff.
--- NOTE | 2018-02-05 14:40 | NUR ---
PT RETURNED FROM CAT ACCOMPANIED BY TWO STAFF AND HER DAUGHTER; ASSISTED BACK TO BED; NO SIGN OF DISTRESS NOTED; LOVENOX ADMINISTERED PER EMAR; DAUGHTER BROUGHT HOME MED (DULOXETINE), MED SENT TO PHARMACY FOR VERIFICATION; PAIN 11/20; ABD PILLOW IN PLACE; 02 2L NASAL ANNULA IN PLACE; RAZO PATENT; RESP EVEN AND UNLABORED; CALL GUIDRY IN REACH; WILL CONTINUE TO MONITOR.
--- NOTE | 2018-02-05 15:35 | NUR ---
PM: PATIENT SEEN FOR GAIT AND EX. STATES SHE WAS UP FOR 2 HOURS THIS AM. TRANSFER SUPINE TO SIT WITH MIN ASSIST AND VERBAL CUING FOR HIP PRECAUTIONS. THE DAUGHTER WAS IN THE ROOM AND THE THERAPIST REVIEWED WITH BOTH THE PATIENT AND DAUGHTER HIP PRECAUTIONS. ISOMETRIC AND AA EX DONE WITH LE FOR ROM AND STRENGTHENING. GAIT TRAINING DONE WITH ROLLING WALKER. PATIENT AMBULATED 10 FEET WITH THE WALKER WITH CUING AND MIN ASSIST. CUING NEEDED FOR SAFETY DURING TRANSFERS. SHE APPEARED TO TOLERATE TREATMENT WELL. SHE WAS LEFT COMFORTABLE IN THE CHAIR WITH THE CALL LIGHT AND TRAY TABLE IN FRONT OF HER. THE DAUGHTER IS ALSO WITH HER.
--- NOTE | 2018-02-05 16:18 | NUR ---
PT SITTING UP IN RECLINER CONVERSING; NO S/S OF DISTRESS NOTED; RESP EVEN AND UNLABORED ON RA; EMPTIED 350CC CLEAR YELLOW URINE; BOTH IVS FLUSED AGAIN WITHOUT DIFFICULTY; PT ENCOURAGE TO USE IS, AND ANKLE PUMPS; DRESSING TO RIGHT HIP CDI, ABD PILLOW IN PLACE PER PT; ICE PACK APPLIED; EDUCATE EXPOSURE MACHINE OPERATOR GUIDRY.
--- NOTE | 2018-02-05 17:15 | NUR ---
RESP EVEN UNLABORED 95% ON RA; PAIN 3/10; MIRALAX ADMISTERED PER EMAR; VITALS REMAINS STABLE, NO FEVER; PT HOPES TO MOVE HER BOWELS BEFORE GOING BACK TO BED. ENCOURAGE TO CALL FOR ASSISTANCE; CALL LIGHT IN REACH; WILL CONTINUE TO MONITOR.
--- NOTE | 2018-02-05 18:05 | NUR ---
ASSISTED PT TO BSC, CALL LIGHT IN REACH.
--- NOTE | 2018-02-05 19:30 | NUR ---
PATIENT RESTING IN BED WITH ABD PILLOW IN PLACE. AWAKE ALERT AND ORIENTEDX3. PATIENT C/O POST-OP PAIN-7/10 ON PAIN SCALE. MEDICATED WITH PERCOCET TABS 2 ORDERED. ICE PACK PROVIDE FOR RIGHT HIP. DRESSING TO RIGHT HIP CDI AT THIS TIME. IV SITE TO RIGHT AC AND LEFT WRIST INTACT.BOTH APPEAR HEALTHY AT THIS TIME. RAZO CATH PATENT AND DRAINING YELLOW URINE. ENCOURAGED USE OF IS Q1H WHILE AWAKE AND ABLE TO DEMONSTRATE PROPER USE OF THE DEVICE. SCD IN PLACE AND CMS TO RIGHT TOES WNL. SAFETY PRECAUTIONS REINFORCED. CALL LIGHT IN REACH. WILL CONT TO MONITOR.
--- NOTE | 2018-02-06 00:29 | NUR ---
PATIENT APPEARS SLEEPING AT THIS TIME WITH HOB SLIGHTLY ELEVATED AND EYES CLOSED. PATIENT WITH NOISEY BREATHING AT TIMES. ABD PILLOW IN PLACE. RAZO PATENT AND DRAINING YELLOW URINE. CALL LIGHT IN REACH. WILL CONT TO MONITOR.
--- NOTE | 2018-02-06 04:49 | NUR ---
APPEARS SLEEPING AT THIS TIME WITH ABD PILLOW IN PLACE. RAZO PATENT AND DRAINING YELLOW URINE. CALL LIGHT IN REACH. WILL CONT TO MONITOR.
[2018-02-06 05:10] LABS: HEMATOCRIT 28.4 % (37.0-47.0); HEMOGLOBIN 9.7 g/dl (12.0-16.0)
[2018-02-06 05:20] VITALS: BP 119/61
--- NOTE | 2018-02-06 07:00 | NUR ---
REPORT RECEIVED FROM RELL GANDHI. PT SLEEPING WITH HEAD SLIGHTLY ELEVATED; PT EASILY AROUSED; VITALS OBTAINED, RESP EVEN & UNLABORED; NO S/S OF DISTRESS; WILL CONTINUE TO MONITOR.
[2018-02-06 07:10] VITALS: BP 122/60
--- NOTE | 2018-02-06 08:00 | NUR ---
MORNING MEDS ADMINISTERED; PAIN 5/10 ON PAIN SCALE, REQUEST PAIN MEDS; PT SITTING UP IN BED EATING BREAKFAST & WATCHING TV; RAZO PATENT DRAINING CLEAR YELLOW URINE; WILL CONTINUE TO MONITOR.
--- NOTE | 2018-02-06 08:00 | NUR ---
ASSESSMENT COMPLETED, SEE INTERVENTION. PT A/O X4; LUNGS CLEAR WITH NO SOB, COUGH OR DISTRESS NOTED; BOWEL SOUNDS ACTIVE ALL QUADRANTS; IV ACCESS TO LW & RAC INTACT; DRESSING TO R HIP CDI; ABD PILLOW IN PLACE; RAZO PATENT DRAINING CLEAR YELLOW URINE. PT EDUCATED TO CONTINUE USING IS; SAFTEY PRECAUTION REINFORED. CALL GUIDRY IN REACH. WILL CONTINUE TO MONITOR
--- NOTE | 2018-02-06 08:15 | NUR ---
MEDICATED WITH PERCOCET FOR PAIN 5/10 ON PAIN SCALE.
--- NOTE | 2018-02-06 08:51 | NUR ---
PHYSICAL THERAPY IN ROOM WORKING WITH PT.
--- NOTE | 2018-02-06 09:15 | NUR ---
DRESSING REMOVED FROM RIGHT HIP USING CLEAN TECHINQUE, DERMABOND INTACT, NO DRAINAGE NOTED, SITE IS WARM TO TOUCH, ICE PACK APPLIED TO AREA PT TOLERATED WELL.
--- NOTE | 2018-02-06 10:16 | NUR ---
Pt. was seen for therapeutic exercises and functional activity of transfer training. Hip precautions reviewed of which pt. verbalized understanding. In bed the pt. was instructed on and perform R and L quad sets with 10 sec. hold, R and L ankle pumps x 20 repetitions, bilat. glut sets x10 repetitions with 10 sec. hold. and sitting L and R LAQ exercises. Verbal/tactile cues given throughout exercises. Transfer training from long sitting to sitting at edge of bed done with min. assist x1 and precaution to R hip. Instruction needed for hand placement when performing sit to stand to RW with light CGA x1. Pt. ambulated 8 feet to [facility] using [place]W and with light CGA x1. Pt. left sitting in attendance of nurse who was in to assist pt. with morning care. Pt. was without questions or concerns.
[2018-02-06 10:55] LABS: ANION GAP 12 (6-22 (CALC)); BUN 14 mg/dL (8-23); BUN/CREATININE RATIO 16 (12-20 (CALC)); CARBON DIOXIDE 28 mmol/l (22-30); CHLORIDE 104 mmol/l (95-108); CREATININE 0.9 mg/dL (0.5-1.0); GFR > 60 ML/MIN (>=60 (CALC)); GFR FOR AFR.AMER. > 60 ML/MIN (>=60 (CALC)); POTASSIUM 3.5 mmol/l (3.5-5.1); SODIUM 141 mmol/l (137-146)
[2018-02-06 11:09] LABS: MAGNESIUM 1.8 mg/dL (1.6-2.3)
[2018-02-06 11:40] VITALS: BP 98/51
--- NOTE | 2018-02-06 13:00 | NUR ---
LACTULOSE & PRUNE JUICE ADMINISTERED; #16 NIUEAN RAZO CATH REMOVED WITH EASE, PT TOLERATED WELL. PT REQUEST TO CONTINUE SITTING UP IN RECLINER WATCHING TV. NO S/S OF DISTRESS NOTED. PAIN 7/10, PT REQ PAIN MEDS.
--- NOTE | 2018-02-06 13:37 | NUR ---
ASSISTED PT TO THE BSC, NO URINE, NO BM AT THIS TIME. ADMINISTERED PERCOCET, PT BACK INTO BED. CALL LIGHT AND ABD PILLOW IN PLACE. WILL CONTINUE TO MONITOR.
--- NOTE | 2018-02-06 15:46 | NUR ---
PT SLEEPING WITH EYES CLOSED, RESP EVEN AND UNLABORED, NO S/S OF DISTRESS. ABD PILLOW IN PLACE. WILL CONTINUE TO MONITOR
[2018-02-06 15:51] VITALS: BP 96/44
--- NOTE | 2018-02-06 16:38 | NUR ---
ASSISTED PT TO THE BSC, PT STATED SHE HAS NO URGE TO URINE, CALL LIGHT IN REACH,
--- NOTE | 2018-02-06 17:15 | NUR ---
PT CONTINUES TO DENY URGE TO VOID, BLADDER SCANNER COMPLED PER DR GILLILAND WHICH IS RELATED TO PREVIOUS RETENTION ISSUES; SHOWS 179CC IN BLADDER. WILL CONTINUE TO MONITOR.
--- NOTE | 2018-02-06 17:50 | NUR ---
ASSISTED PT TO THE RECLINER FOR SUPPER, ABD PILLOW IN PLACE, CALL LIGHT IN REACH. WILL CONTINUE TO MONITOR.
--- NOTE | 2018-02-06 18:49 | NUR ---
ATTEMPTING TO SEE PATIENT, WHO HAD JUST GOTTEN HER DINNER. SHE REQUESTS HOLDING OFF ON THERAPY AT THIS TIME. CAME BACK 15 MIN LATER, AND SHE IS STILL EATING. REVIEWED HIP PRECUATIONS VERBALLY AND WITH DEMONSTRATION. ENCOURAGED TO CONTINUE LAQ, ANKLE PUMPS AND MAINTAIN HP PRECAUTIONS. WILL RESUME BID TX TOMORROW.
[2018-02-06 19:30] VITALS: BP 106/64
--- NOTE | 2018-02-06 19:30 | NUR ---
PATIENT SITTING UP IN RECLINER-AWAKE ALERT AND ORIENTEDX3. STATES THAT SHE IS HAVING A PRETTY GOOD DAY. SALINE LOCK TO RIGHT AC AND LEFT WRIST BOTH INTACT AND BOTH APPEAR HEALTHY AT THIS TIME. RIGHT HIP INCISION DOMENICA AND WELL APPROXIMATED. NO COMPLAINTS AT THIS TIME. CALL LIGHT IN REACH. SAFETY PRECAUTIONS REINFORCED. WILL CONT TO MONITOR.
--- NOTE | 2018-02-06 20:19 | NUR ---
PATIENT MIN ASSIST FROM RECLINER TO BSC TO VOID 300CC OF ALAN URINE. MIN ASSIST FROM BSC TO BED. PATIENT TOLERATED ACTIVITY WELL. ABD PILLOW PLACED AND SCD PLACE ON. RIGHT HIP INCISION IS DOMENICA WELL APPROXIMATED WITH DERMABOND IN PLACE. SLIGHT REDNESS AND SWELLING. ICE PACK APPLIED. SCD PLACED ORDERED. PATIENT USING IS INSTRUCTED AND DEMONSTRATE PROPER USE OF THE DEVICE. SAFETY PRECAUTIONS REINFORCED. CALL LIGHT IN REACH. WILL CONT TO MONITOR.
--- NOTE | 2018-02-06 21:15 | NUR ---
BS-224. PATIENT COVERED WITH NOVALOG 2UNITS SQ AND RECIEVED HER SCHEDULED DOSE OF NOVALIN N-30 UNITS SQ. BEDTIME SNACK PROVIDED. PAIN LEVEL 4/10 AFTER PERCOCET EARLIER. CALL LIGHT IN REACH. WILL CONT TO MONITOR.
[2018-02-07] VITALS: BP 110/71
--- NOTE | 2018-02-07 00:25 | NUR ---
PATIENT APPEARS SLEEPING AT THIS TIME WITH HOB SLIGHTLY ELEVATED AND EYES CLOSED. ABD PILLOW IN PLACE. SCD IN PLACE. RESP ARE EVEN AND UNLABORED. CALL LIGHT IN REACH. WILL CONT TO MONITOR.
--- NOTE | 2018-02-07 02:17 | NUR ---
PATIENT CALLED AND ASSISTED TO BSC TO VOID 800CC OF ALAN URINE. ASSISTED BACK TO BED. PATIENT IS DOING WELL WITH TRANSFERS. CALL LIGHT IN REACH. WILL CONT TO MONITOR.
[2018-02-07 04:13] VITALS: BP 138/68
--- NOTE | 2018-02-07 05:08 | NUR ---
PATIENT APPEARS SLEEPING AT THIS TIME WITH EYES CLOSED. RESP ARE EVEN AND UNLABORED. CALL LIGHT IN REACH. WILL CONT TO MONITOR.
[2018-02-07 05:29] LABS: HEMATOCRIT 26.9 % (37.0-47.0); HEMOGLOBIN 9.1 g/dl (12.0-16.0); IMMATURE GRANULOCYTES 0.7 % (0.0-5.0); MEAN CELL VOLUME 89.4 fL CALC (80.0-100.0); MEAN CORPUSCULAR HGB 30.2 pG CALC (26.0-32.0); MEAN CORPUSCULAR HGB CONC 33.8 g/L CALC (32.0-36.0); NEUT# 3.78 thou/uL (2.00-7.15); RED BLOOD COUNT 3.01 mill/uL (4.20-5.60); RED CELL DISTRI WIDTH 13.1 % (11.5-15.5)
[2018-02-07 05:47] LABS: ALBUMIN 2.8 g/dL (3.2-5.0); ALKALINE PHOSPHATASE 71 u/l (38-126); ANION GAP 12 (6-22 (CALC)); BILIRUBIN, TOTAL 0.4 mg/dL (0.0-1.4); BUN 14 mg/dL (8-23); BUN/CREATININE RATIO 14 (12-20 (CALC)); CARBON DIOXIDE 29 mmol/l (22-30); CHLORIDE 103 mmol/l (95-108); GFR 55 ML/MIN (>=60 (CALC)); GFR FOR AFR.AMER. > 60 ML/MIN (>=60 (CALC)); MAGNESIUM 1.7 mg/dL (1.6-2.3); POTASSIUM 3.5 mmol/l (3.5-5.1); SGOT/AST 32 u/l (9-36); SGPT/ALT 29 u/l (11-66); SODIUM 140 mmol/l (137-146); TOTAL PROTEIN 5.4 g/dL (6.3-8.2)
[2018-02-07 07:45] VITALS: BP 120/58
--- NOTE | 2018-02-07 11:47 | NUR ---
BRADY BOWER AT BEDSIDE. ICE PACK REFILLED AND APPLIED TO RIGHT HIP. PT SITTING IN CHAIR AT BEDSIDE. APPEARS COMFORTABLE.
[2018-02-07 12:01] VITALS: BP 106/52
--- NOTE | 2018-02-07 12:33 | NUR ---
AM. PT WAS SEEN FOR GT. SHE WAS ABLE TO STAND UP FROM RECLINER WITH SBA AND VC. PT THEN CONTINUED TO AMBULATE OUT OF HER ROOM IN A VERY SLOW PACE, W/ A RW AND SBA. STATED PAIN LEVEL PS 6/10. OBSERVED STABLE GAIT PATTERN WITH RW. PT THEN RETURNED TO HER ROOM AND SAT DOWN IN THE RECLINER WITH GOOD CONTROL. LEFT PT WITH CALL GUIDRY WITHIN REACH. NO ADVERSE EVENTS.
--- NOTE | 2018-02-07 13:15 | NUR ---
PT ASSISTED BACK TO BED. PT REQUESTS TO WAIT FOR SUPPOSITORY UNTIL SHE HAS RESTED.
--- NOTE | 2018-02-07 14:28 | NUR ---
PT REPORTS FEELING DIAPHORETIC AND PULSING IN THROAT AND HEAD. VSS, 98.2, 95, 108/64, 96% RA, 21. BLOOD SUGAR 179. pT STATES IT COULD BE RELATED TO ANXIETY. BRADY BOWER NOTIFIED, ASSESSED PT AND ORDERED XANAX PO. MED ADMINISTERED, WELL SUPPOSITORY FOR CONSTIPATION. PT INSTRUCTED TO CALL FOR ASSISTANCE TO RESTROOM. PT STATES UNDERSTANDING. CALL LIGHT WITHIN REACH.
[2018-02-07] MEDS ORDERED: PERCOCET 10/31 COMBO PO (15:03)
--- NOTE | 2018-02-07 15:06 | NUR ---
The patient is seen for second treatment today and was able to ambulate 150 feet with FWW WBAT and working on a step through gait. He ambulated on a level surface . She required mod assist for ambulation and reviewedd her HEP. She has a copy of HEP as well
[2018-02-07 15:20] VITALS: BP 90/51
--- NOTE | 2018-02-07 17:06 | NUR ---
PT ASSISTED TO RESTROOM W/ WALKER AND STANDBY ASSIST. PT ATTEMPTED BM, WITH NO RESULT. ASSISTED BACK TO BED.
[2018-02-07 19:40] VITALS: BP 102/61
--- NOTE | 2018-02-07 19:50 | NUR ---
PT WAS HEARD CALLING OUT FROM ROOM. UPON ENTERING ROOM, PT WAS FOUND SITTING ON BSC. SHE STATED THAT SHE NEEDED TO GO TO THE BATHROOM AND "COULDN'T WAIT." PT REQUESTED TO SIT FOR A FEW MINUTES AND RECHECKED. PT ASSISTED BACK TO BED, VERY LARGE SOFT BROWN STOOL EMPTIED FROM BSC AND KEITH-CARE PROVIDED. PT DENIES ANY OTHER NEEDS AT THIS TIME. CALL LIGHT W/IN REACH, LIGHTS TURNED DOWN/REQUEST AND PT ENCOURAGED TO CALL IF ANY OTHER NEEDS ARISE AND PT REMINDED OF CALLING PRIOR TO AMBULATION FOR ASSISTANCE TO PREVENT FALLS.
--- NOTE | 2018-02-07 21:10 | NUR ---
PT MEDICATED ORDERS PROVIDE AND FOR PAIN REPORTED 11/20. PT ASSESSED, LUNG SOUNDS ARE CLEAR, SURGICAL INCISION TO RIGHT HIP IS CDI, RIGHT LEG IS WARM TO TOUCH W/ 2+EDEMA TO RIGHT LEG. NO REDNESS NOTED AT THIS TIME. LOCX3, ABD SOFT/NON-TENDER W/ACTIVE BOWEL SOUNDS. WEAK BUT PALPABLE PEDAL PULSES BILATERALLY, NEURO'S INTACT AND SKIN INTACT OTHER THAN INCISION TO RIGHT HIP. DENIES ANY OTHER NEEDS AT THIS TIME. CALL LIGHT AT BEDSIDE.
[2018-02-08 00:04] VITALS: BP 155/84
--- NOTE | 2018-02-08 01:51 | NUR ---
PT CALLED OUT, UPON ENTERING ROOM SHE WAS DOWN LOW IN THE BED W/FEET AGAINST FOOT RAIL, STATING HER LEG AND GROIN AREA HURT 8/10. SHE WAS BREATHING HEAVY. PT WAS REPOSITIONED AND MEDICATED FOR PAIN. WEDGE IS IN PLACE. PT PROVIDED PO WATER AND OFFERED ICE-PACK TO RIGHT HIP/REFUSED ICE PACK. PT OFFERED COOL WASHCLOTH TO HEAD/REFUSED. PT TALKED THROUGH DEEP SLOW BREATHS AND REASURANCE. WILL CONTINUE TO MONITOR AND ASSESS. PT WAS LEFT CALMLY IN BED W/LIGHTS OUT, DOOR OPEN FOR COMFORT. PT REMINDED OF PLACEMENT OF CALL LIGHT AT HER SIDE AND ENCOURAGED TO CALL IF SHE NEEDED ANY ASSISTANCE.
--- NOTE | 2018-02-08 02:37 | NUR ---
PT REPORTS PAIN LEVEL IS MUCH BETTER, BUT SHE FEELS ANXIOUS AND IS HAVING TROUBLE SLEEPING. PT COVERS ADJUSTED FOR COMFORT AND AIR IN ROOM COOLED, REFUSED COOL PACK, PT PROVIDED COMFORT BY TALKING AND ENCOURAGEMENT. WILL FOLLOW-UP AND CONTINUE TO MONITOR. PT REORIENTED TO CALLING FOR ASSISTANCE.
[2018-02-08 04:10] VITALS: BP 136/72
--- NOTE | 2018-02-08 04:34 | NUR ---
PT CALLED STATING SHE NEEDED THE BEDPAN. WHEN I ENTERED THE ROOM, SHE DENIED SHE NEEDED THAT AND STATED THAT SHE "IS DOING TERRIBLE" AND SHE "HAS NO WATER" AND IS "SWEATING WET" AND IS "NOT OKAY." I ASKED WHAT WAS BOTHERING HER THE MOST AND WHAT SHE NEEDED ME TO DO FIRST SHE REPLIED, "I DON'T KNOW, I'M THE SICK ONE, BUT I HAVE NO WATER AND I'M SWEATY." I ASSISTED IN GETTIN HER WATER TO DRINK, HER PITCHER NEXT TO BED WAS FULL WITH FRESH ICE WATER THAT HAD BEEN REPLENISHED SHORTLY BEFORE, I REFILLED HER CUP FOR HER. V/S WERE ASSESSED BP 136/72,HR108,O2 SAT 95%RA, TEMP 99.2. WE CHECKED HER BLOOD SUGAR VIA ACCU-CHECK @161. SHE STATED, "I HAVE A TEMPERATURE, SOMETHING IS WRONG." I EDUCATED PT ON POST-OP SYMPTOMS/RESPONSES. SHE REPLIED, "NO." I OFFERED COOL WASHCLOTH, SHE REFUSED. PT THEN STATED THAT SHE WAS NAUSIOUS, PT WAS MEDICATED WITH ZOFRAN. PT ENCOURAGED TO TAKE SLOW DEEP BREATHS. PT REPORTED THAT SHE NEEDED TO GO TO THE RESTROOM, PT WAS ASSISTED TO BSC AND BACK TO BED USING WALKER AND STANDBY X1 ASSIST. PT REPOSITIONED AND REASSURED. PT DENIED NEED FOR PAIN MEDICATION AT THIS TIME. PT STATED SHE MAY CALL HER DAUGHTER, PHONE IS AT BEDSIDE ALONG WITH CALL LIGHT WITHIN REACH. PT WAS ENCOURAGED TO CALL IF SHE NEEDED ASSISTANCE OR IF ANYTHING WORSENED OR CHANGED. WILL CONTINUE TO MONITOR CLOSELY.
--- NOTE | 2018-02-08 05:35 | NUR ---
PT APPEARS TO BE WATCHING TV W/LIGHTS OUT. NO S/S OF DISTRESS AT THIS TIME.
--- NOTE | 2018-02-08 06:31 | NUR ---
PT IS STATING THAT HER DAUGHTER IS COMING TO GET HER, SHE IS GOING HOME. I ASKED IF THERE IS ANYTHING I CAN DO FOR HER AND SHE REPLIED NO. I ASKED IF SHE WAS IN PAIN SHE DIDN'T REPLY, I ASKED AGAIN IF SHE NEEDS PAIN MEDICATION, SHE STATED NO. I ASKED IF THERE WAS ANYTHING ELSE I COULD GET HER, SHE SHOOK HER HEAD NO. I DISCUSSED POC W/HER REGARDING REHAB TODAY, SHE STATED SHE IS NOT GOING TO REHAB AND SHE DOESN'T HAVE TO, SHE SAID SHE IS TOO ILL FOR REHAB AND IS GOING HOME. I NOTIFIED [employer] MAINFRAME SYSTEMS PROGRAMMER.
--- NOTE | 2018-02-08 06:38 | NUR ---
HOME IMPROVEMENT INSTALLER IN TO SEE PT.
--- NOTE | 2018-02-08 06:47 | NUR ---
PT TEMP 99.3, ACCU-CHECK 164, NO S/S OF DISTRESS, PT WATCHING TV.
--- NOTE | 2018-02-08 07:17 | NUR ---
BEDSIDE REPORT GIVEN TO DAY NURSE. DAUGHTER IS AT BEDSIDE. PT IS STILL STATING SHE IS GOING HOME AFTER THE DOCTOR GETS HERE. SHE IS REFUSING ANY MEDICATIONS AT THIS TIME FOR PAIN, BUT IS REQUESTING HER AM MEDICATIONS.
--- NOTE | 2018-02-08 07:24 | NUR ---
SHIFT CHANGE REPORT FROM REFUGIO, PT AWAKE ALERT AND ORIENTED, ANXIOUS AND AGITATED, ABRUPT, IRRITABLE, C/O PAIN BUT REFUSED PAIN MEDS AT THIS TIME STATING SHE JUST WANTS TO GO HOME. AFTER ASKING WHAT COULD STAFF DO FOR HER SHE REQUESTED A CUP OF COFFEE THEN ASKED IF SHE COULD HAVE HER MEDS NOW, SHE WAS ADVISED HER REQUEST WOULD BE ADDRESSED MANUELITO. CALL GUIDRY IN REACH, FAMILY MEMBER IN ROOM VISITING.
[2018-02-08 07:50] VITALS: BP 114/60
--- NOTE | 2018-02-08 11:16 | NUR ---
The patient tells me he is going home today. She reviewed hip precautions with me, demonstrated independent bed mobility and transfers bed to chair with SBA of 1. She is also independent with her HEP.
--- NOTE | 2018-02-08 12:56 | NUR ---
DR FLOOD ROUNDED AND DISCUSSED PLAN OF CARE TO PT, INFORMED ABOUT REHAB AND PT WAS ADAMANT ABOUT NOT GOING BUT FINALLY DECIDED SHE WOULD GO, MAINTENANCE INSPECTOR ARE WORKING ON PLAN, WILL CONTINUE TO MONITOR.
[2018-02-08 13:31] VITALS: BP 100/54
[2018-02-08] MEDS ORDERED: LORTAB 1010 MG PO (13:49)
[2018-02-08] MEDS ORDERED: TEMAZEPAM15 MG PO (14:05)
[2018-02-08] MEDS ORDERED: CLONAZEPAM1 MG PO (14:05)
--- NOTE | 2018-02-08 14:58 | NUR ---
REPORT CALLED TO JUAN CARLOS AT [facility], TRANSPORTER RECEIVING PT AT THIS TIME TO TRANSFER TO [facility].
--- NOTE | 2018-02-08 15:19 | NUR ---
Discharge instructions given. Patient verbalizes understanding of same. Discharged in good condition via Wheel[facility] to [facility] with *Other. All belongings sent with pt.
== END 2018-02-08 15:00 | DRG 470 ==
LOC: MS2 02-04 06:40
PROVIDERS: Nurse Practitioner Family; ADMIT Orthopaedic Surgery; ATTEND Internal Medicine Nephrology
PROC: 0SR904A Replacement of Right Hip Joint with Ceramic on Polyethylene Synthetic Substitute, Uncemented, Open Approach (ICD-10-PCS; principal; 2018-02-04)
DX: M16.11 Unilateral primary osteoarthritis, right hip (principal); I10 Essential (primary) hypertension; E11.9 Type 2 diabetes mellitus without complications; J44.9 Chronic obstructive pulmonary disease, unspecified; E66.01 Morbid (severe) obesity due to excess calories; Z68.34 Body mass index [BMI] 34.0-34.9, adult; E78.5 Hyperlipidemia, unspecified; F32.9 Major depressive disorder, single episode, unspecified; F41.1 Generalized anxiety disorder; G47.33 Obstructive sleep apnea (adult) (pediatric); Z87.891 Personal history of nicotine dependence; Z79.4 Long term (current) use of insulin
CPT/HCPCS: J1650; J2270; J2710; Q9967

== ENCOUNTER 2018-03-14 10:00 | Observation (INO) | payer MEDICARE, BC ==
[~2018-03-14] VITALS: Ht 162.6 cm; Wt 104.0 kg
[~2018-03-14 10:00] MED LIST changes: +LORTAB 1010 MG PO; +PERCOCET 10/31 COMBO PO
[2018-03-14 10:41] LABS: HEMATOCRIT 32.7 % (37.0-47.0); IMMATURE GRANULOCYTES 0.3 % (0.0-5.0); MEAN CORPUSCULAR HGB 25.6 pG CALC (26.0-32.0); MEAN CORPUSCULAR HGB CONC 30.6 g/L CALC (32.0-36.0); NEUT# 3.94 thou/uL (2.00-7.15); RED BLOOD COUNT 3.91 mill/uL (4.20-5.60); RED CELL DISTRI WIDTH 13.8 % (11.5-15.5)
[2018-03-14 10:44] LABS: MEAN CELL VOLUME 83.6 fL CALC (80.0-100.0)
[2018-03-14 11:13] LABS: ANION GAP 16 (6-22 (CALC)); BILIRUBIN, TOTAL 0.4 mg/dL (0.0-1.4); BUN 17 mg/dL (8-23); BUN/CREATININE RATIO 15 (12-20 (CALC)); CARBON DIOXIDE 28 mmol/l (22-30); CHLORIDE 103 mmol/l (95-108); CREATININE 1.1 mg/dL (0.5-1.0); GFR 49 ML/MIN (>=60 (CALC)); GFR FOR AFR.AMER. 60 ML/MIN (>=60 (CALC)); POTASSIUM 3.5 mmol/l (3.5-5.1); SGOT/AST 30 u/l (9-36); SODIUM 144 mmol/l (137-146)
[2018-03-14 11:29] LABS: ALBUMIN 4.1 g/dL (3.2-5.0); ALKALINE PHOSPHATASE 115 u/l (38-126); TOTAL PROTEIN 7.3 g/dL (6.3-8.2)
[2018-03-14 16:15] VITALS: BP 176/80
[2018-03-14 19:10] VITALS: BP 127/58
[2018-03-14 21:04] LABS: CREATININE 1.2 mg/dL (0.5-1.0); POTASSIUM 4.1 mmol/l (3.5-5.1)
[2018-03-14 23:33] VITALS: BP 119/63
[2018-03-15 04:42] VITALS: BP 157/79
[2018-03-15 05:53] LABS: HEMATOCRIT 30.2 % (37.0-47.0); HEMOGLOBIN 9.3 g/dl (12.0-16.0); IMMATURE GRANULOCYTES 0.8 % (0.0-5.0); MEAN CELL VOLUME 83.2 fL CALC (80.0-100.0); MEAN CORPUSCULAR HGB 25.6 pG CALC (26.0-32.0); MEAN CORPUSCULAR HGB CONC 30.8 g/L CALC (32.0-36.0); NEUT# 6.03 thou/uL (2.00-7.15); RED BLOOD COUNT 3.63 mill/uL (4.20-5.60); RED CELL DISTRI WIDTH 13.8 % (11.5-15.5)
[2018-03-15 06:01] LABS: URINE BILIRUBIN - DIPSTICK NEGATIVE (NEGATIVE); URINE BLOOD DIPSTICK NEGATIVE (NEGATIVE); URINE COLOR YELLOW; URINE GLUCOSE - DIPSTICK >=1000 mg/dL (NEGATIVE); URINE KETONE NEGATIVE (NEGATIVE); URINE LEUK ESTERASE NEGATIVE (NEGATIVE); URINE NITRITE - DIPSTICK NEGATIVE (Negative); URINE PROTEIN - DIPSTICK NEGATIVE (NEG-TRACE); URINE SPECIFIC GRAVITY <=1.005; URINE UROBILINOGEN - DIPSTICK 0.2 E.U./dL (0.2)
[2018-03-15 06:02] LABS: URINE CLARITY CLEAR
[2018-03-15 06:10] LABS: ALBUMIN 3.7 g/dL (3.2-5.0); BILIRUBIN, TOTAL 0.3 mg/dL (0.0-1.4); CREATININE 1.1 mg/dL (0.5-1.0); POTASSIUM 4.1 mmol/l (3.5-5.1); TOTAL PROTEIN 6.7 g/dL (6.3-8.2)
[2018-03-15 11:35] VITALS: BP 124/63
[2018-03-15] MEDS ORDERED: TRAMADOL HYDROC50 MG PO (13:33)
== END 2018-03-15 15:00 | disposition home or self-care (01) ==
LOC: ED 10:00 → ED-I 14:40 → ED 15:13 → MS2 15:14
PROVIDERS: Emergency Medicine; Internal Medicine; ADMIT Internal Medicine Nephrology; ATTEND Internal Medicine Nephrology
DX: J44.1 Chronic obstructive pulmonary disease with (acute) exacerbation (principal); I12.9 Hypertensive chronic kidney disease with stage 1 through stage 4 chronic kidney disease, or unspecified chronic kidney disease; E11.22 Type 2 diabetes mellitus with diabetic chronic kidney disease; N18.3 Chronic kidney disease, stage 3 (moderate); E11.65 Type 2 diabetes mellitus with hyperglycemia; M16.12 Unilateral primary osteoarthritis, left hip; E78.5 Hyperlipidemia, unspecified; K21.9 Gastro-esophageal reflux disease without esophagitis; F41.8 Other specified anxiety disorders; E66.01 Morbid (severe) obesity due to excess calories; Z68.39 Body mass index [BMI] 39.0-39.9, adult; Z87.891 Personal history of nicotine dependence; Z96.641 Presence of right artificial hip joint; Z79.4 Long term (current) use of insulin; Z91.11 Patient's noncompliance with dietary regimen; R06.02 Shortness of breath
CPT/HCPCS: Q9967

== ENCOUNTER 2018-04-11 15:09 | Inpatient (IN) | payer MEDICARE, BC ==
[~2018-04-11] VITALS: Ht 162.6 cm; Wt 99.8 kg
[~2018-04-11 15:09] MED LIST changes: +FUROSEMIDE20 MG PO; +SINEQUAN10 MG PO; +TRAMADOL HYDROC50 MG PO
[2018-04-15] VITALS (8 sets, daily range): BP systolic 113–145; BP diastolic 42–61
--- NOTE | 2018-04-15 14:35 | NUR ---
PT ARRIVED ON UNIT @ 1335 WITH PACU STAFF, BEDSIDE REPORT RECEIVED FROM RACEHL,PT TRANSFERRED FROM STRETCHER TO BED AND SETTLED. SURGICAL INCISION TO LEFT HIP CDI, IVF 0.9 NS INFUSING TO SITE IN RW, SCD IN PLACE, VITAL SIGNS BEING MEASURED, CALL GUIDRY IN REACH.
--- NOTE | 2018-04-15 14:41 | NUR ---
PT IS AT ROOM 264. SHE JUST ARRIVED TO [facility] FROM SURGERY. PHYSICAL THERAPY WAS ATTEMPTED, HOWEVER, PT DECLINED, STATING THAT SHE WAS NOT FEELING WELL ENOUGH TO PARTICIPATE AND WANTED TO TAKE SOME REST.
--- NOTE | 2018-04-15 19:00 | NUR ---
BEDSIDE REPORT RECEIVED FROM RELL BOYD. PT RESTING IN BED SUPINE; DROWSY AND ORIENTED. C/O LEFT HIP PAIN; WEDGE IN PLACE BETWEEN LEGS. SCD ON TO RLE AND IS AT BEDSIDE. RESPIRATIONS EVEN AND UNLABORED WITH OXYGEN ON; PT HAS O2 CANNULA ABOVE NARES, STATES THAT IT WAS BOTHERING HER NOSE. SATURATIONS ARE ABOVE 90%. PLAN OF CARE DISCUSSED. PT ENCOUAGED TO VERABLIZE CONCERNS. STATES UNDERSTANDING. SAFETY MEASURES IN PLACE. CALL LIGHT WITHIN REACH.
--- NOTE | 2018-04-15 22:00 | NUR ---
PT DEMOSTRATED USE OF IS; UP TO 1999. ASA AND 1 UNIT OF INSULIN GIVEN FOR BLOOD GLUCOSE OF 153. IV FLUIDS INFUSING WITHOUT DIFFICULTY; IV SITE APPEARS HEALTHY TO RIGHT HAND. MORE AWAKE AND ALERT.
[2018-04-16 00:30] VITALS: BP 119/60
--- NOTE | 2018-04-16 00:30 | NUR ---
PT C/O FEELING HOT AND COLD WITH CHILLS; TEMPERATURE 97.5. 2 PERCOCET GIVEN AT THIS TIME AND ICE APPLIED TO LEFT HIP. ADVANCED DIET TO FULL LIQUID FOR BREAKFAST, TOLERATING CLEAR LIQUID. IV FLUIDS INFUSING WITHOUT DIFFICULTY; IV SITE APPEARS HEALTHY. STRESS INCONTINENCE WHEN SHE COUGHS. NO OTHER REQUESTS OR COMPLAINTS AT THIS TIME. CALL LIGHT WITHIN REACH.
[2018-04-16 04:30] VITALS: BP 133/64
--- NOTE | 2018-04-16 04:30 | NUR ---
PT ASLEEP AT THIS TIME WITH NO SIGNS OF DISTRESS. RESPIRATIONS EVEN AND UNLABROED ON ROOM AIR NOW. OXYGEN PRN AT BEDSIDE. NO ACUTE CHANGES IN CONDITION THROUGHOUT THE NIGHT. SAFETY MEASURES IN PLACE. CALL LIGHT WITHIN REACH.
[2018-04-16 05:06] LABS: HEMATOCRIT 27.2 % (37.0-47.0); HEMOGLOBIN 8.2 g/dl (12.0-16.0); IMMATURE GRANULOCYTES 0.2 % (0.0-5.0); MEAN CELL VOLUME 81.2 fL CALC (80.0-100.0); MEAN CORPUSCULAR HGB 24.5 pG CALC (26.0-32.0); MEAN CORPUSCULAR HGB CONC 30.1 g/L CALC (32.0-36.0); NEUT# 4.66 thou/uL (2.00-7.15); RED BLOOD COUNT 3.35 mill/uL (4.20-5.60); RED CELL DISTRI WIDTH 14.7 % (11.5-15.5)
[2018-04-16 05:31] LABS: ALBUMIN 2.9 g/dL (3.2-5.0); ALKALINE PHOSPHATASE 96 u/l (38-126); ANION GAP 12 (6-22 (CALC)); BILIRUBIN, TOTAL 0.3 mg/dL (0.0-1.4); BUN 11 mg/dL (8-23); BUN/CREATININE RATIO 11 (12-20 (CALC)); CARBON DIOXIDE 26 mmol/l (22-30); CHLORIDE 106 mmol/l (95-108); GFR 55 ML/MIN (>=60 (CALC)); GFR FOR AFR.AMER. > 60 ML/MIN (>=60 (CALC)); MAGNESIUM 1.5 mg/dL (1.6-2.3); POTASSIUM 3.5 mmol/l (3.5-5.1); SODIUM 141 mmol/l (137-146); TOTAL PROTEIN 5.5 g/dL (6.3-8.2)
[2018-04-16 05:32] LABS: SGOT/AST 41 u/l (9-36)
[2018-04-16 07:45] VITALS: BP 146/78
--- NOTE | 2018-04-16 08:00 | NUR ---
AM ASSESSMENT COMPLETED EARLIER, SEE INTERVNETIONS, PT ALERT AND ORIENTED, COMLAINS OF COUGH "I NEVER HAVE A COUGH I MEAN NEVER, BUT OF COURSE I WOKE UP WITH ONE YESTERDAY", DRY HACKING COUGH NOTED INTERMITTENLY, NON PRODUCTIVE PER PT, VS STABLE, COMPLANTS OF PAIN AND ANXIETY WILL MEDICATE ORDERED; COMFORT MEASURES PROVIDED, INCONTINENCE BRIEF IN PLACE PER PT REQUEST, DRESSING TO LEFT HIP CLEAN DRY AND INTACT, ABDUCTOR WEDGE IN PLACE, WILL CONTINUE TO MONITOR.
--- NOTE | 2018-04-16 10:15 | NUR ---
PT RESTING IN BED, MEDICATED FOR ANXIETY WITH KLONIPIN (PT TAKES THIS AT HOME) DAUGHTER TO BRING CYMBALTA IN FROM HOME AND NOTIFY STAFF WHEN DAUGHTER BRINGS MED IN.
[2018-04-16 11:43] VITALS: BP 115/44
--- NOTE | 2018-04-16 13:10 | NUR ---
PT MEDICATED FRO COMPLAINTS OF PAIN. RIGHT HAND IV ACCESS EDEMATOUS NO ASPIRATE NOTED, IV SITE REMOVED INTACT. WILL CONTINUE TO MONITOR.
--- NOTE | 2018-04-16 13:29 | NUR ---
P.T. AT BEDSIDE FOR THERAPY.
--- NOTE | 2018-04-16 14:28 | NUR ---
PT REMAINS SITTING UP IN RECLINER (UP WITH PHYSICAL THERAPY) SOME ANXIETY EARLIER WITH THERAPY BUT RESOLVED NOW AND PT CALM WATCHING TELEVISION, IN TO SEE PATIENT, DISCUSSED PLAN OF CARE INCLDUING REHAB POST HOSPITAL STAY.
[2018-04-16 15:50] VITALS: BP 112/51
--- NOTE | 2018-04-16 16:22 | NUR ---
PT BACK TO BED WITH 2 MOD ASSIT, TOLERATED WELL, CALL GUIDRY WITHIN REACH SCD BACK ONTO RLE, REPOSITIONED FOR COMFORT, WILL CONTINUE TO MONITOR.
--- NOTE | 2018-04-16 19:00 | NUR ---
RECEIVED REPORT FROM DAY NURSE. PT RESTING IN BED WITH EYS CLOSED/ NO S/S OF DISTRESS. O2 @ 2L RESPIRATIONS EVEN AND UNLABORED. CALL GUIDRY IN REACH. WILL CONTINUE TO MONITOR.
[2018-04-16 19:29] VITALS: BP 115/60
--- NOTE | 2018-04-16 21:10 | NUR ---
PT RESTING IN BED AT THIS TIME. MEDICATED PER ORDER. PT NOT HAVING ANY PAIN RIGHT NOW. ASSESMENT COMPLETED AT THIS TIME(SEE INTERVENTIONS) LUNG SOUNDS CLEAR, HEART SOUNDS NORMAL. LEFT LEG HIP DRESSING CDI, TRACE EDEMA NOTED. PT HAS O2 AT 2L; RESPIRATIONS EVEN AND UNLABORED. PT VOICING NO COMPLAINTS AT THIS TIME. CALL GUIDRY IN REACH. WILL CONTINUE TO MONITOR.
--- NOTE | 2018-04-17 | NUR ---
PT RESTIN IN BED WITH EYES CLOSED. O2 AT 2L. NO S/S OF DISTRESS. CALL GUIDRY IN REACH. WILL CONTINUE TO MONITOR.
[2018-04-17 00:13] VITALS: BP 166/57
[2018-04-17 04:00] VITALS: BP 132/55
--- NOTE | 2018-04-17 04:00 | NUR ---
PT RESTING IN BED. NO S/S OF DISTRESS. CALL GUIDRY IN REACH. WILL CONTINUE TO MONITOR.
[2018-04-17 05:56] LABS: HEMATOCRIT 27.9 % (37.0-47.0); HEMOGLOBIN 8.3 g/dl (12.0-16.0); IMMATURE GRANULOCYTES 0.6 % (0.0-5.0); MEAN CELL VOLUME 81.6 fL CALC (80.0-100.0); MEAN CORPUSCULAR HGB 24.3 pG CALC (26.0-32.0); MEAN CORPUSCULAR HGB CONC 29.7 g/L CALC (32.0-36.0); NEUT# 4.98 thou/uL (2.00-7.15); RED BLOOD COUNT 3.42 mill/uL (4.20-5.60)
[2018-04-17 06:18] LABS: ALKALINE PHOSPHATASE 97 u/l (38-126); ANION GAP 9 (6-22 (CALC)); BILIRUBIN, TOTAL 0.4 mg/dL (0.0-1.4); BUN 10 mg/dL (8-23); BUN/CREATININE RATIO 11 (12-20 (CALC)); CARBON DIOXIDE 31 mmol/l (22-30); CHLORIDE 102 mmol/l (95-108); GFR 55 ML/MIN (>=60 (CALC)); GFR FOR AFR.AMER. > 60 ML/MIN (>=60 (CALC)); MAGNESIUM 1.8 mg/dL (1.6-2.3); POTASSIUM 3.7 mmol/l (3.5-5.1); SGOT/AST 38 u/l (9-36); SODIUM 137 mmol/l (137-146); TOTAL PROTEIN 5.8 g/dL (6.3-8.2)
[2018-04-17 07:17] VITALS: BP 110/52
--- NOTE | 2018-04-17 07:24 | NUR ---
ASSESSMENT COMPLETED; PT LAYING IN BED AWAKE, ALERT; RESP EVEN AND UNLABORED; DRESSING TO LEFT HIP CDI; O2 2L NC; SCD TO R. LEG; ABD PILLOW SECURE BETWEEN LEGS; PT DEMONSTRATE USE OF IS; PT ENCOURAGE TO USE IT; NON PRODUCTIVE COUGH NOTED; PT VOICED NO CONCERNS; CALL GUIDRY IN REACH.
[2018-04-17 11:05] VITALS: BP 123/66
--- NOTE | 2018-04-17 11:28 | NUR ---
PT LAYING IN BED WITH HOB ELEVATED; RESP EVEN AND UNLABORED; MEDICATED PER EMAR; PT VOICED NO CONCERNS;
--- NOTE | 2018-04-17 13:44 | NUR ---
PT. C/O LEFT HIP PAIN; MEDICATED WITH ORDERED PERCOCET 2 TAB COMBO; WILL REASSESS. WARM PRUNE JUICE PROVIDED TO ASSIST WITH BM; WILL REASSESS. CALL LIGHT IS IN REACH.
--- NOTE | 2018-04-17 14:50 | NUR ---
PT. ASSITED BACK TO BED WITH PT AND THIS MOLD MAKER; PT. VERRY ANXIOUS WHEN GETTING UP AND MOVING; KEITH CARE GIVEN AND NEW GOWN APPLIED; LINENS CHANGED. NEW IV SITE APPLIED TO RAC X1 ATTEMPT; PO FLUIDS OFFERED. ENCOURAGED TO CALL FOR ANY NEEDS. CALL LIGHT IS IN REACH. WILL CONTINUE TO MONITOR.
--- NOTE | 2018-04-17 15:22 | NUR ---
PT LAYING IN BED WATCHING TV; MEDICATED PER EMAR; RESP EVEN AND UNLABORED; NO ACUTE CHANGES NOTED; BED IN LOW LOCKED POSITION, CALL GUIDRY IN REACH.
--- NOTE | 2018-04-17 15:23 | NUR ---
PATIENT UP IN CHAIR, READY TO GET BACK TO BED. ENCOURAGED TO AMB LONGER DISTANCE AROUND END OF BED TO OTHER SIDE. SIT TO STAND WITH MIN A AND V.C.'S FOR HAND PLACEMENT WITH RW. AMB WITH STEP TO GAIT AND CGA TO MIN A. NSG IN TO GET PATIENT CLEANED UP PRIOR TO GOING BACK TO BED. PATIENT FATIGUED AFTER 12 FEET AND REQUIRED CHAIR BEHIND HER TO SIT. SIT TO STAND FOLLOWING REST, WITH MOD A AT WALKER FOR PERICARE. PATIENT THEN TURNED 90 DEGREES AND ABLE TO SIT FROM STAND WITH V.C.'S. ATTEMPTED SIT TO SUPINE AND PATINET WAS UNABLE TO LAY ON SIDE AND LAYED BACK INTO NURSES SUPPORT. SHE BECAME VERY ANXIOUS SHE THOUGHT SHE WOULD FALL. ABLE TO PULL BACK TO SIT AND THEN MOD A OF 2 SIT TO SUPINE WITH MOST OF SUPPORT AT LE'S. REQUIRED PURSED LIP BREATHING AND CALMED ONCE COMFORTABOEL IN BED. CALL GUIDRY, TRAY TABLE AND NSG PRESENT. CONT BID.
[2018-04-17 15:30] VITALS: BP 131/61
--- NOTE | 2018-04-17 16:45 | NUR ---
The patient is seen for review of her hip precautions and she demonstrates understanding. She is able to get OOB with min assist and take 4-5 steps with FWW. She has excellent pain control today. and is improving with mobility. She is an excellent SNF candidate but would also be appropriate for home with HH. She reviewed isometric hip exercises and precautions and she is independent with this.
[2018-04-17 19:00] VITALS: BP 132/68
--- NOTE | 2018-04-17 20:00 | NUR ---
ASSESSMENT IS COMPLETED: PT IS RELAXING IN BED WITH NO DISTRESS NOTED. IV SITE IS FREE FROM REDNESS OR EDEMA. HR IS REG,PULSES ARE STRONG X4,ABD IS SOFT WITH ACTIVE BS. BREATH SOUNDS ARE CLEAR BILATERALLY, HAS A DRY COUGH. DRESSING ON LEFT HIP IS DOMENICA WITH BRUISING. SATINDER ARE CDI. CONTINUE TO OSBERVE AND MONITOR.
[2018-04-18] VITALS (13 sets, daily range): BP systolic 114–158; BP diastolic 50–69
--- NOTE | 2018-04-18 | NUR ---
PT IS RELAXING IN BED WITH NO DISTRESS NOTED. IV SITE IS FREE FROM REDNESS OR EDEMA.
--- NOTE | 2018-04-18 04:00 | NUR ---
PT IS RESTING IN BED WITH NO DISTRESS NOTED. IV SITE IS FREE FROM REDNESS OR EDEMA.
[2018-04-18 06:03] LABS: HEMOGLOBIN 7.8 g/dl (12.0-16.0); IMMATURE GRANULOCYTES 0.5 % (0.0-5.0); MEAN CELL VOLUME 81.3 fL CALC (80.0-100.0); MEAN CORPUSCULAR HGB 24.4 pG CALC (26.0-32.0); NEUT# 4.07 thou/uL (2.00-7.15); RED BLOOD COUNT 3.2 mill/uL (4.20-5.60); RED CELL DISTRI WIDTH 14.8 % (11.5-15.5)
[2018-04-18 06:08] LABS: ALBUMIN 2.7 g/dL (3.2-5.0); ALKALINE PHOSPHATASE 88 u/l (38-126); ANION GAP 11 (6-22 (CALC)); BILIRUBIN, TOTAL 0.3 mg/dL (0.0-1.4); BUN 11 mg/dL (8-23); BUN/CREATININE RATIO 12 (12-20 (CALC)); CARBON DIOXIDE 30 mmol/l (22-30); CHLORIDE 102 mmol/l (95-108); CREATININE 0.9 mg/dL (0.5-1.0); GFR > 60 ML/MIN (>=60 (CALC)); GFR FOR AFR.AMER. > 60 ML/MIN (>=60 (CALC)); MAGNESIUM 1.8 mg/dL (1.6-2.3); POTASSIUM 3.4 mmol/l (3.5-5.1); SGOT/AST 31 u/l (9-36); SODIUM 139 mmol/l (137-146); TOTAL PROTEIN 5.4 g/dL (6.3-8.2)
--- NOTE | 2018-04-18 07:13 | NUR ---
REPORT RECEIVED FROM MATHEUS MEI; PT APPEARS TO BE SLEEPING, RESP EVEN AND UNLABORED.
--- NOTE | 2018-04-18 09:00 | NUR ---
ASSESSMENT COMPLETED; PT SITTING UP IN BED HOB ELEVATED; RESP EVEN AND UNLABORED; NON PRODUCTIVE COUGH NOTED; DRESSING & SATINDER TO LEFT HIP CDI, FIELD CANE SCALER; TRACE EDEMA NOTED; IV SITE FLUSHED WITHOUT DIFFICULTY, SITE APPEARS HEALTHY; CALL GUIDRY IN REACH; WILL CONTINUE TO MONITOR.
--- NOTE | 2018-04-18 12:04 | NUR ---
PT SITTING UP IN BED EATING LUNCH; COMPLAIN OF PAIN 6/10 MEDICATED PER EMAR; NO S/S OF DISTRESS NOTED; RESP EVEN AND UNLABORED ON ROOM AIR.
--- NOTE | 2018-04-18 14:00 | NUR ---
Pt seen this pm at 1330 for treatment. She was in bed c/o 6/10 pain, stated her other hip was not a painful afterwards. A/AROM ex performed in bed maintaining hip precautions, pt stated she remembers from last hip. Supine to sit with SBA and CGA requried for gait in room x 30'. She performed sitting knee ext. Pt resting in chair, legs elevated, call [place] and try in place. Nursing aware.
--- NOTE | 2018-04-18 14:50 | NUR ---
PT CONSENT TO RECEIVE PRBC, CONSENT SIGNED; INFUSION OF PRBC STARTED; PT TOLERATED WELL;
--- NOTE | 2018-04-18 17:02 | NUR ---
PT LAYING IN BED APPEARS TO BE SLEEPING; PRBC INFUSING WELL; RESP EVEN AND UNLABORED AT ROOM AIR; NO S/S OF DISTRESS NOTED; WILL CONTINUE TO MONITOR.
--- NOTE | 2018-04-18 18:10 | NUR ---
@1754, 2ND BAG OF PRBC INFUSING; PT TOLERATING PRBC WELL; PT ASLEEP BUT EASILY AWAKEN; VITALS STABLE AT THIS TIME;
--- NOTE | 2018-04-18 19:00 | NUR ---
BEDSIDE REPORT RECEIVED FROM MATHEUS ROACH. PT RESTING IN BED SEMI FOWLERS WITH EYES CLOSES; AWAKENS TO VERBAL STIMULI. BLOOD TRANSFUSION INFUSING WITHOUT DIFFICULY; IV SITE APPEARS HEALTHY TO RAC. NO S/S REACTION VS STABLE, AFEBRILE. C/O 5/10 LEFT HIP PAIN; DERMABOND INTACT; INCISION APPEARS HEALTHY AND APPROXIMATED. RESPIRATIONS EVEN AND UNLABORED ON ROOM AIR. PLAN OF CARE REVIEWED. PT ENCOURAGED TO VERBALIZE CONCERNS. STATES UNDERSTANDING. SAFETY MEASURES IN PLACE. CALL LIGHT WITHIN REACH.
--- NOTE | 2018-04-18 21:38 | NUR ---
BLOOD TRANSFUSION COMPLETED. NO COMPLAINTS OR CHANGE IN CONDITION. VS STABLE.
--- NOTE | 2018-04-19 | NUR ---
PT INCONTINENT OF LARGE AMOUNT OF URINE AFTER COUGHING; HYGIENE PROVIDED. PT SEEMED UPSET AND STATES THAT IT UPSETS HER WHEN SHE WETS THE BED. TLC GIVEN. IV SITE APPEARS HEALTHY AND FLUSHES. PT IS ONE PERSON ASSIST TO BSC. DECLINED LACTULOSE AT HS STATING SHE HAS ALREADY HAD A BM TODAY. PERCOCET GIVEN WITH GOOD EFFECT. NO REQUESTS OR CONCERNS. CALL LIGHT WITHIN REACH.
[2018-04-19 00:58] VITALS: BP 129/64
--- NOTE | 2018-04-19 04:02 | NUR ---
PT ASLEEP AT THIS TIME WITH NO SIGNS OF DISTRESS. RESPIRATIONS EVEN AND UNLABORED ON ROOM AIR. NO ACUTE CHANGES THROUGHOUT THE NIGHT. SAFETY MEASURES IN PLACE. CALL LIGHT WITHIN REACH.
[2018-04-19 05:05] VITALS: BP 145/74
[2018-04-19 05:10] LABS: MEAN CELL VOLUME 82.3 fL CALC (80.0-100.0); MEAN CORPUSCULAR HGB CONC 31.5 g/L CALC (32.0-36.0); RED BLOOD COUNT 4.47 mill/uL (4.20-5.60); RED CELL DISTRI WIDTH 15.3 % (11.5-15.5)
[2018-04-19 05:12] LABS: HEMATOCRIT 36.8 % (37.0-47.0); HEMOGLOBIN 11.6 g/dl (12.0-16.0)
[2018-04-19 05:24] LABS: ANION GAP 12 (6-22 (CALC)); BUN 11 mg/dL (8-23); BUN/CREATININE RATIO 12 (12-20 (CALC)); CARBON DIOXIDE 31 mmol/l (22-30); CHLORIDE 102 mmol/l (95-108); CREATININE 0.9 mg/dL (0.5-1.0); GFR > 60 ML/MIN (>=60 (CALC)); GFR FOR AFR.AMER. > 60 ML/MIN (>=60 (CALC)); POTASSIUM 3.4 mmol/l (3.5-5.1); SODIUM 141 mmol/l (137-146)
--- NOTE | 2018-04-19 06:34 | NUR ---
PERCOCET GIVEN AFTER BEING ASSISTED OFF OF BEDPAN. OXYGEN REPLACED AT 2L FOR SOB WITYH EXERTION.
[2018-04-19 07:35] VITALS: BP 170/59
--- NOTE | 2018-04-19 07:35 | NUR ---
ASSESSMENT IS COMPLETED: PT IS RESTING IN BED WITH NO DISTRESS NOTED. IV SITE IS FREE FROM REDNESS OR EDEMA. HR IS REG,PULSES ARE STRONG , ABD IS SOFT WITH ACTIVE BS. DERMABOND IN PLACE ON LEFT HIP. CONTINUE TO OSBERVE AND MONITOR.
[2018-04-19 09:16] VITALS: BP 170/59
--- NOTE | 2018-04-19 10:48 | NUR ---
Pt seen this am for ther and gait training. Pt stated her leg felt better than yesterday. A/AAROM ex performed in supine and sitting. Pt moved supine to sit with supervision. Verbal cue required for safety, push off bed, reach for chair before sitting. Pt ambulated with RW and CGA 2x60'. She was positioned properly in chair with legs elevated, heels off loaded. Pt with call santiago and tray in reach.
--- NOTE | 2018-04-19 12:00 | NUR ---
PT HAS BEEN SITTING IN THE CHAIR AND THEN BACK TO BED. IV SITE IS FREE FROM REDNESS OR EDEMA. FAMILY IN THE ROOM VISITING EARLIER. CONTINUE TO OBSERVE AND MONITOR.
--- NOTE | 2018-04-19 14:45 | NUR ---
GAVE REPORT TO JUAN CARLOS JARVIS AT [facility]. ALL BELONGINGS AND PAPERS SENT WITH PT AND MANAGER INTERN. Discharge instructions given. Patient verbalizes understanding of same. Discharged in stable condition via Wheelchair to [facility] with *Other. All belongings sent with pt.
--- NOTE | 2018-04-19 16:08 | NUR ---
HOUSEKEEPING FOUND PT'S GLASSES UNDER THE BED. INFORMING [facility]
--- NOTE | 2018-04-19 17:22 | NUR ---
SPOKE WITH DAUGHTER, DH AND REHAB STAFF PICKED UP GLASSES
[2018-04-20] MEDS ORDERED: PERCOCET 10/31 COMBO PO ×2 (16:11→16:38)
== END 2018-04-19 14:38 | DRG 470 ==
LOC: MS2 04-15 06:07
PROVIDERS: ADMIT Orthopaedic Surgery; ATTEND Internal Medicine Nephrology
PROC: 0SRB04A Replacement of Left Hip Joint with Ceramic on Polyethylene Synthetic Substitute, Uncemented, Open Approach (ICD-10-PCS; principal; 2018-04-15)
PROC: 30233N1 Transfusion of Nonautologous Red Blood Cells into Peripheral Vein, Percutaneous Approach (ICD-10-PCS; 2018-04-18)
PROC: 30233N1 Transfusion of Nonautologous Red Blood Cells into Peripheral Vein, Percutaneous Approach (ICD-10-PCS; 2018-04-18)
DX: M16.12 Unilateral primary osteoarthritis, left hip (principal); D62 Acute posthemorrhagic anemia; J44.9 Chronic obstructive pulmonary disease, unspecified; E11.9 Type 2 diabetes mellitus without complications; I10 Essential (primary) hypertension; Z87.891 Personal history of nicotine dependence; Z96.641 Presence of right artificial hip joint; E66.01 Morbid (severe) obesity due to excess calories; E78.5 Hyperlipidemia, unspecified; F41.1 Generalized anxiety disorder; F32.9 Major depressive disorder, single episode, unspecified; K21.9 Gastro-esophageal reflux disease without esophagitis; G47.33 Obstructive sleep apnea (adult) (pediatric); Z68.39 Body mass index [BMI] 39.0-39.9, adult
CPT/HCPCS: J2710; P9016

== ENCOUNTER → 2018-07-12 | Outpatient (REF) | payer MEDICARE, BC ==
[2018-07-12 09:51] LABS: HEMATOCRIT 40.5 % (37.0-47.0); MEAN CELL VOLUME 86.9 fL CALC (80.0-100.0); MEAN CORPUSCULAR HGB 27.9 pG CALC (26.0-32.0); MEAN CORPUSCULAR HGB CONC 32.1 g/L CALC (32.0-36.0); RED BLOOD COUNT 4.66 mill/uL (4.20-5.60); RED CELL DISTRI WIDTH 15.3 % (11.5-15.5)
[2018-07-12 10:23] LABS: BILIRUBIN, TOTAL 0.5 mg/dL (0.0-1.4); CHOLESTEROL HDL RATIO 3.1 (<4.4 (CALC)); CREATININE 1.1 mg/dL (0.5-1.0); POTASSIUM 3.7 mmol/l (3.5-5.1)
== END | disposition home or self-care (01) ==
LOC: LAB 08:57
PROVIDERS: ATTEND Internal Medicine
DX: E11.42 Type 2 diabetes mellitus with diabetic polyneuropathy (principal); E78.2 Mixed hyperlipidemia; I10 Essential (primary) hypertension; M15.0 Primary generalized (osteo)arthritis; N18.3 Chronic kidney disease, stage 3 (moderate); R60.0 Localized edema